=== PATIENT | female | born 1970 | race Caucasian/White ===

== ENCOUNTER 2023-10-16 22:49 | Emergency (ER) | payer BC, SELFPAY ==
[2023-10-16 22:54] VITALS: BP 178/92; PULSE 61; RESP 18; TEMP 36.4; O2SAT 100; BMI 21.9
--- NOTE | 2023-10-16 23:27 | CT_ITS ---
The [place] [id number] Patient Name: PARISA DEAN MRN: [id number] date: 1970 Sex: F Assigned Patient Location: ER Current Patient Location: ER Accession/Order Number: [id number] Exam Date: 10/16/2023 23:59 Report Date: 10/17/2023 01:03 At the request of: ALVINA KIRKPATRICK Procedure: CT abdomen pelvis w con EXAM: CT abdomen pelvis w con HISTORY: diffuse abdominal pain COMPARISON: None. TECHNIQUE: CT of abdomen and pelvis with intravenous contrast. Dose reduction techniques were achieved by using automated exposure control and/or adjustment of mA and/or kV according to patient size and/or use of iterative reconstruction technique. FINDINGS: TUBES AND IMPLANTS: None. LOWER CHEST: Unremarkable ABDOMEN and PELVIS ABDOMINAL WALL AND SOFT TISSUES: Unremarkable. BONES: No suspicious lesions. Mild degenerative changes of the spine. ARTERIES: Mild aortoiliac atherosclerosis without aneurysm VEINS: Unremarkable. LYMPH NODES: Unremarkable. PERITONEUM/ RETROPERITONEUM: No abscess or free air BOWEL: There are mild to moderate sigmoid diverticula with surrounding fat stranding. No obstruction APPENDIX: Unremarkable LIVER: No focal lesions GALLBLADDER: Unremarkable. BILE DUCTS: Not dilated SPLEEN: Calcified granulomata PANCREAS: Unremarkable. ADRENALS: Unremarkable. KIDNEYS/ URETERS: No stones or hydronephrosis. REPRODUCTIVE ORGANS: The uterus is surgically absent. URINARY BLADDER: Diffuse wall thickening CT/CT abdomen pelvis w con IMPRESSION: 1. Findings concerning for acute sigmoid diverticulitis. No abscess or evidence of perforation. 2. Diffuse wall thickening of the bladder, correlate for cystitis. Electronically authenticated by: KAYLEIGH NEVILLE Date: 10/17/2023 01:03
[2023-10-16 23:31] LABS: Basophils Absolute Auto 0.1 10^3/uL (0.0-0.1); Eosinophils Absolute Auto 0.2 10^3/uL (0.0-0.7); Eosinophils Percent Auto 3.1 % (0.9-7.0); Hematocrit 41.3 % (36.0-48.0); Hemoglobin 14.1 g/dL (12.0-16.0); Immature Granulocytes Abs Auto 0.01 10^3/uL (0.00-0.03); Immature Granulocytes Pct Auto 0.2 % (0.0-0.5); Lymphocytes Absolute Auto 2.1 10^3/uL (1.2-3.8); Lymphocytes Percent Auto 34.3 % (20.5-60.0); Mean Corpuscular HGB Conc 34.1 g/dL (29.9-35.2); Mean Corpuscular Hemoglobin 32.7 pg (26.7-34.0); Mean Corpuscular Volume 95.8 fL (81.0-99.0); Mean Platelet Volume 9.6 fL (9.5-13.5); Monocytes Absolute Auto 0.5 10^3/uL (0.3-0.8); Monocytes Percent Auto 7.9 % (1.7-12.0); Neutrophils Absolute Auto 3.3 10^3/uL (1.4-6.5); Neutrophils Percent Auto 53.5 % (43.0-75.0); Platelet Count 250 10^3/uL (150-450); Red Blood Count 4.31 10^6/uL (4.20-5.40); Red Cell Distribution Width 12.3 % (11.0-15.0); White Blood Count 6.1 10^3/uL (4.0-11.0)
[2023-10-16 23:36] LABS: Bilirubin Urine NEGATIVE (NEGATIVE); Blood Urine NEGATIVE (NEGATIVE); Clarity Urine CLEAR (CLEAR); Color Urine LT. YELLOW (YELLOW); Glucose Urine UA NEGATIVE (NEGATIVE); Ketones Urine NEGATIVE (NEGATIVE); Leukocyte Esterase Urine NEGATIVE (NEGATIVE); Nitrite Urine NEGATIVE (NEGATIVE); Protein Urine NEGATIVE (NEG/TRACE); Specific Gravity Urine <=1.005 (1.005-1.025); Urobilinogen Urine 0.2 EU/dL (0.2-1.0)
[2023-10-16 23:39] LABS: Urine Microscopic Indicated NO
[2023-10-16 23:50] LABS: Alanine Aminotransferase 35 U/L (14-59); Albumin Globulin Ratio 0.9; Albumin Level 3.6 g/dL (3.4-5.0); Alkaline Phosphatase 79 U/L (46-116); Anion Gap 11.8; Aspartate Amino Transferase 38 U/L (15-37); BUN Creatinine Ratio 13.4; Bilirubin Total 0.5 mg/dL (0.2-1.0); Calcium 9.8 mg/dL (8.5-10.1); Carbon Dioxide 27.5 mmol/L (21.0-32.0); Chloride 104 mmol/L (98-107); Estimated GFR (African America >60 (>=60); Estimated GFR (Non-African Ame >60 (>=60); Glucose 115 mg/dL (74-106); Potassium 3.3 mmol/L (3.5-5.1); Sodium 140 mmol/L (136-145); Total Protein 7.6 g/dL (6.4-8.2)
[2023-10-16] MEDS: 0.9 % SODIUM CHLORIDE 1,000 ML 999 ML IV (23:58)
--- NOTE | 2023-10-16 23:59 | ED.ABDPAIN1 ---
HPI - Abdominal Pain General Chief Complaint: Abdominal Pain Stated Complaint: ABD PAIN Time Seen by Provider: 10/16/23 22:53 Source: patient Mode of arrival: walk-in Limitations: no limitations History of Present Illness HPI narrative: Patient developed diffuse abdominal pain 2 days ago and pain has steadily worsened since then. She denied any injury to the torso. No urinary symptoms. Pain better after BM but worse during urination. Pain is non-radiating and there is no associated flank pain. No fever. She had nausea but no vomiting. No skin rash. Nothing taken for pain at home. Related Data Previous Rx's Medication Instructions Recorded ciprofloxacin HCl 500 mg tablet 500 mg PO BID #14 tabs 10/17/23 (Cipro) hydrocodone 5 mg-acetaminophen 325 1 tab PO Q6H PRN pain 4 days #14 10/17/23 mg tablet tabs metronidazole 500 mg tablet 500 mg PO TID #21 tabs 10/17/23 ondansetron 4 mg disintegrating 4 mg PO Q6H PRN nausea and 10/17/23 tablet vomiting #14 tabs Allergies Allergy/AdvReac Type Severity Reaction Status Date / Time cefazolin [From [facility]] Allergy Mild Verified 10/16/23 22:58 PFSH PFSH Social History Smoking status: Current every day smoker Exam Narrative Exam Narrative: Nurses notes and vital signs reviewed and patient is not hypoxic. afebrile General: Well-appearing and in no apparent distress despite telling me that her abdominal pain is 12/10. Skin: Warm, dry, no pallor noted. No rash. Eye: Pupils are equal, round and EOMI. No scleral icterus. Cardiovascular: Regular Rate and Rhythm without murmur, gallop or rub. Respiratory: No accessory muscle use or respiratory distress. Lungs are clear to auscultation, no wheezing, rales or rhonchi Back: No CVA tenderness Musculoskeletal: normal ROM, no lower extremity edema/swelling GI: Abdomen is soft, non-distended. Normal bowel sounds. No masses appreciated. Diffuse tenderness to palpation. No rebound, guarding, or rigidity noted. Neurological: A&O x4. No cranial nerve dysfunction observed. No truncal ataxia. Moves all extremities. Sensation intact. Psychiatric: Cooperative and interactive. Normal mood and affect. Constitutional Vital Signs, click to edit/add: Last Vital Signs Temp 97.6 F 10/16/23 22:54 Pulse 50 L 10/17/23 01:17 Resp 18 10/17/23 01:17 BP 129/65 10/17/23 01:17 Pulse Ox 99 10/17/23 01:17 O2 Del Method Room Air 10/17/23 01:17 Course Vital Signs Vital signs: Vital Signs Temperature 97.6 F 10/16/23 22:54 Pulse Rate 61 10/16/23 22:54 Respiratory Rate 18 10/16/23 22:54 Blood Pressure 178/92 H 10/16/23 22:54 Pulse Oximetry 100 10/16/23 22:54 Oxygen Delivery Method Room Air 10/16/23 22:54 Temperature 97.6 F 10/16/23 22:54 Pulse Rate 50 L 10/17/23 01:17 Respiratory Rate 18 10/17/23 01:17 Blood Pressure 129/65 10/17/23 01:17 Pulse Oximetry 99 10/17/23 01:17 Oxygen Delivery Method Room Air 10/17/23 01:17 MDM - Abdominal Pain MDM Narrative Medical decision making narrative: referral IV established and blood drawn and sent for testing. I also asked the urine be sent for testing. The patient was ordered to undergo CT scanning of the abdomen and pelvis with both oral and IV contrast. She was given IV Zofran, IV Toradol and normal saline IV fluid bolus. Blood and urine tests unremarkable for acute worrisome pathology. CT scan revealed sigmoid diverticulitis without perforation. UA negative so bladder changes on CT unlikely to reflect cystitis. Patient informed of results and prescribed cipro and flagyl to treat the diverticulitis and prescribed zofran and norco for nausea and pain. PCP follow up recommended - ED return if she worsens. Lab Data Attestation: I reviewed the patient's lab results. Labs: Lab Results 10/16/23 10/16/23 Range/Units 23:00 23:25 WBC 6.1 (4.0-11.0) 10^3/uL RBC 4.31 (4.20-5.40) 10^6/uL Hgb 14.1 (12.0-16.0) g/dL Hct 41.3 (36.0-48.0) % MCV 95.8 (81.0-99.0) fL MCH 32.7 (26.7-34.0) pg MCHC 34.1 (29.9-35.2) g/dL RDW 12.3 (11.0-15.0) % Plt Count 250 (150-450) 10^3/uL MPV 9.6 (9.5-13.5) fL Neut % (Auto) 53.5 (43.0-75.0) % Lymph % (Auto) 34.3 (20.5-60.0) % [place] % (Auto) 7.9 (1.7-12.0) % Eos % (Auto) 3.1 (0.9-7.0) % Baso % (Auto) 1.0 (0.2-2.0) % Neut # (Auto) 3.3 (1.4-6.5) 10^3/uL Lymph # (Auto) 2.1 (1.2-3.8) 10^3/uL [place] # (Auto) 0.5 (0.3-0.8) 10^3/uL Eos # (Auto) 0.2 (0.0-0.7) 10^3/uL Baso # (Auto) 0.1 (0.0-0.1) 10^3/uL Abs Immat Gran (auto) 0.01 (0.00-0.03) 10^3/uL Imm/Tot Granulo (auto) 0.2 (0.0-0.5) % Sodium 140 (136-145) mmol/L Potassium 3.3 L (3.5-5.1) mmol/L Chloride 104 (98-107) mmol/L Carbon Dioxide 27.5 (21.0-32.0) mmol/L Anion Gap 11.8 BUN 11.0 (7.0-18.0) mg/dL Creatinine 0.82 (0.55-1.02) mg/dL Est GFR ( Amer) >60 (>=60) Est GFR (Non-Af Amer) >60 (>=60) BUN/Creatinine Ratio 13.4 Glucose 115 H (74-106) mg/dL Calcium 9.8 (8.5-10.1) mg/dL Total Bilirubin 0.5 (0.2-1.0) mg/dL AST 38 H (15-37) U/L ALT 35 (14-59) U/L Alkaline Phosphatase 79 (46-116) U/L Total Protein 7.6 (6.4-8.2) g/dL Albumin 3.6 (3.4-5.0) g/dL Globulin 4.0 g/dL Albumin/Globulin Ratio 0.9 Lipase 34.0 (16.0-77.0) U/L Urine Color Lt. yellow (YELLOW) Urine Clarity Clear (CLEAR) Urine pH 7.0 (5.0-9.0) Ur Specific [place] <=1.005 A (1.005-1.025) Urine Protein Negative (NEG/TRACE) mg/dL Urine Glucose (UA) Negative (NEGATIVE) mg/dL Urine Ketones Negative (NEGATIVE) mg/dL Urine Occult Blood Negative (NEGATIVE) Urine Nitrite Negative (NEGATIVE) Urine Bilirubin Negative (NEGATIVE) Urine Urobilinogen 0.2 (0.2-1.0) EU/dL Ur Leukocyte Esterase Negative (NEGATIVE) Imaging Data CT scan - abdomen: Radiologist's impression: Patient Name: PARISA DEAN MRN: [id number] date: 1970 Sex: F Assigned Patient Location: Current Patient Location: Accession/Order Number: [id number] Exam Date: 10/16/2023 23:59 Report Date: 10/17/2023 01:03 At the request of: ALVINA KIRKPATRICK Procedure: CT abdomen pelvis w con EXAM: CT abdomen pelvis w con HISTORY: diffuse abdominal pain COMPARISON: None. TECHNIQUE: CT of abdomen and pelvis with intravenous contrast. Dose reduction techniques were achieved by using automated exposure control and/or adjustment of mA and/or kV according to patient size and/or use of iterative reconstruction technique. FINDINGS: TUBES AND IMPLANTS: None. LOWER CHEST: Unremarkable ABDOMEN and PELVIS ABDOMINAL WALL AND SOFT TISSUES: Unremarkable. BONES: No suspicious lesions. Mild degenerative changes of the spine. ARTERIES: Mild aortoiliac atherosclerosis without aneurysm VEINS: Unremarkable. LYMPH NODES: Unremarkable. PERITONEUM/ RETROPERITONEUM: No abscess or free air BOWEL: There are mild to moderate sigmoid diverticula with surrounding fat stranding. No obstruction APPENDIX: Unremarkable LIVER: No focal lesions GALLBLADDER: Unremarkable. BILE DUCTS: Not dilated SPLEEN: Calcified granulomata PANCREAS: Unremarkable. ADRENALS: Unremarkable. KIDNEYS/ URETERS: No stones or hydronephrosis. REPRODUCTIVE ORGANS: The uterus is surgically absent. URINARY BLADDER: Diffuse wall thickening IMPRESSION: 1. Findings concerning for acute sigmoid diverticulitis. No abscess or evidence of perforation. 2. Diffuse wall thickening of the bladder, correlate for cystitis. Electronically authenticated by: KAYLEIGH NEVILLE Date: 10/17/2023 01:03 Discharge Plan Discharge Chief Complaint: Abdominal Pain Clinical Impression: Diverticulitis Patient Disposition: Home, Self-Care Time of Disposition Decision: 01:15 Prescriptions / Home Meds: New ondansetron 4 mg tablet,disintegrating 4 mg PO Q6H PRN (Reason: nausea and vomiting) Qty: 14 0RF ciprofloxacin HCl [Cipro] 500 mg tablet 500 mg PO BID Qty: 14 0RF metronidazole 500 mg tablet 500 mg PO TID Qty: 21 0RF hydrocodone-acetaminophen 5-325 mg tablet 1 tab PO Q6H PRN (Reason: pain) 4 Days Qty: 14 0RF Instructions: Diverticulitis (ED), Diverticulitis Diet (ED) Stand Alone Forms: Portal Instructions Referrals: Physician,Non-Staff, MD [Primary Care Provider] - 1 week
[2023-10-17] MEDS: KETOROLAC TROMETHAMINE 30 MG/ML VIAL IVP (00:04)
[2023-10-17] MEDS: ONDANSETRON PF 4 MG/2 ML VIAL IV (00:05)
[2023-10-17 01:17] VITALS: BP 129/65; PULSE 50; RESP 18; O2SAT 99
== END 2023-10-17 01:45 | disposition home or self-care (01) ==
PROVIDERS: Emergency Provider Emergency Medicine
DX: K57.32 Diverticulitis of large intestine without perforation or abscess without bleeding (principal); F17.210 Nicotine dependence, cigarettes, uncomplicated
CPT/HCPCS: 36415; 74177; 80053; 81003; 83690; 85025; 96374; 96375; 99284; Q9967

== ENCOUNTER 2024-12-09 11:46 | Emergency (ER) | payer BC, SELFPAY ==
[2024-12-09 11:52] VITALS: BP 163/86; PULSE 91; TEMP 36.7; O2SAT 97; BMI 21.9
--- NOTE | 2024-12-09 12:13 | CT_ITS ---
The [address] [id number] Patient Name: PARISA DEAN MRN: [id number] date: 1970 Sex: F Assigned Patient Location: ER Current Patient Location: .[facility] Accession/Order Number: [id number] Exam Date: 12/09/2024 12:20 Report Date: 12/09/2024 13:11 At the request of: ROSI HUDDLESTON Procedure: CT abdomen pelvis wo con EXAM: CT scan of the abdomen and pelvis without contrast. Dose reduction technique used: Automated exposure control and/or adjustment of the mA and/or kV according to patient size and/or use of iterative reconstruction technique. REASON FOR EXAM: RLQ pain COMPARISON: CT scan dated 10/17/23 FINDINGS: Bladder wall thickening. Suggestion of mild bilateral urothelial thickening in the renal pelvises. Colonic diverticulosis. Bilateral adrenal adenomas are not significantly changed. Grade 1 anterolisthesis at of L4 on L5. L5 superior endplate chronic compression fracture with mild height loss. L4-5 spinal canal stenosis is likely moderate. No renal, ureteral or bladder calculi. No hydronephrosis. Normal appendix. No free fluid in the abdomen or pelvis. No free intraperitoneal air. No dilated or thickened loops of small bowel or colon. Liver, pancreas, spleen, bilateral kidneys, and bilateral adrenal glands are otherwise unremarkable within the limitations of noncontrast CT. No lymphadenopathy in the abdomen or pelvis. Remainder unremarkable. CT/CT abdomen pelvis wo con IMPRESSION: Possible changes of cystitis and ascending urinary tract infection, correlate clinically. Electronically authenticated by: CASSIA MCCOY Date: 12/09/2024 13:11
[2024-12-09 12:23] LABS: Bilirubin Urine NEGATIVE (NEGATIVE); Blood Urine NEGATIVE (NEGATIVE); Clarity Urine CLEAR (CLEAR); Color Urine LT. YELLOW (YELLOW); Glucose Urine UA NEGATIVE (NEGATIVE); Ketones Urine NEGATIVE (NEGATIVE); Leukocyte Esterase Urine NEGATIVE (NEGATIVE); Nitrite Urine NEGATIVE (NEGATIVE); Protein Urine NEGATIVE (NEG/TRACE); Specific Gravity Urine <=1.005 (1.005-1.025); Urobilinogen Urine 0.2 EU/dL (0.2-1.0)
[2024-12-09] MEDS: KETOROLAC TROMETHAMINE 30 MG/ML VIAL 15 MG IVP (12:26)
[2024-12-09 12:28] LABS: Basophils Absolute Auto 0.1 10^3/uL (0.0-0.1); Basophils Percent Auto 1.7 % (0.2-2.0); Eosinophils Absolute Auto 0.2 10^3/uL (0.0-0.7); Eosinophils Percent Auto 2.7 % (0.9-7.0); Hematocrit 40.4 % (36.0-48.0); Immature Granulocytes Abs Auto 0.11 10^3/uL (0.00-0.03); Immature Granulocytes Pct Auto 1.8 % (0.0-0.5); Lymphocytes Absolute Auto 2.5 10^3/uL (1.2-3.8); Mean Corpuscular HGB Conc 34.7 g/dL (29.9-35.2); Mean Corpuscular Hemoglobin 32.2 pg (26.7-34.0); Mean Corpuscular Volume 92.9 fL (81.0-99.0); Mean Platelet Volume 9.1 fL (9.5-13.5); Monocytes Absolute Auto 0.3 10^3/uL (0.3-0.8); Monocytes Percent Auto 5.6 % (1.7-12.0); Neutrophils Absolute Auto 2.9 10^3/uL (1.4-6.5); Neutrophils Percent Auto 47.2 % (43.0-75.0); Platelet Count 321 10^3/uL (150-450); Red Blood Count 4.35 10^6/uL (4.20-5.40); Red Cell Distribution Width 12.1 % (11.0-15.0)
[2024-12-09 12:34] LABS: Urine Microscopic Indicated NO
[2024-12-09 12:39] LABS: Alanine Aminotransferase 30 U/L (14-59); Albumin Globulin Ratio 1.3; Albumin Level 4.1 g/dL (3.4-5.0); Alkaline Phosphatase 62 U/L (46-116); Anion Gap 11.4; Aspartate Amino Transferase 23 U/L (15-37); BUN Creatinine Ratio 8.3; Bilirubin Total 0.3 mg/dL (0.2-1.0); Calcium 9.2 mg/dL (8.5-10.1); Carbon Dioxide 28.6 mmol/L (21.0-32.0); Chloride 103 mmol/L (98-107); Estimated GFR (African America 56 (>=60 mL/min/1.73m^2); Estimated GFR (Non-African Ame 46 (>=60 mL/min/1.73m^2); Globulin 3.1 g/dL; Glucose 102 mg/dL (74-106); Sodium 139 mmol/L (136-145); Total Protein 7.2 g/dL (6.4-8.2)
[2024-12-09 12:41] LABS: Lactate/Lactic Acid 0.6 mmol/L (0.4-2.0)
[2024-12-09] MEDS: 0.9 % SODIUM CHLORIDE 1,000 ML 500 ML IV (12:51)
--- OUTSIDE RECORDS SUMMARY | 2024-12-09 12:51 | XMS_ITS | CCD ---
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 Comment on above: Performed By: #### U MICRO, ERUR #### [facility] [address] [address] [address] Johanny Christianson CAST SEEN Abnormal NONE SEEN [facility] Comment on above: Performed By: #### U MICRO, ERUR #### [facility] [address] [address] [address] Johanny Christianson Crystals LM Nom (Urine sed) NONE SEEN Normal NONE SEEN [facility] Comment on above: Performed By: #### U MICRO, ERUR #### [facility] [address] [address] [address] Johanny Christianson Epithelial cells LM Ql (Urine sed) RARE Normal NONE SEEN /RARE [facility] Comment on above: Performed By: #### U MICRO, ERUR #### [facility] [address] [address] [address] Johanny Christianson FINE GRANULAR CAST RARE Normal [facility] Comment on above: Performed By: #### U MICRO, ERUR #### [facility] [address] [address] [address] Johanny Christianson MUCOUS NONE SEEN Normal NONE SEEN [facility] Comment on above: Performed By: #### U MICRO, ERUR #### [facility] [address] [place] [address] Dr. Johanny Christianson RBC 0-2 Normal 0-2 [facility] Comment on above: Performed By: #### U MICRO, ERUR #### [facility] [address] [address] [address] Johanny Christianson WBC 0-2 Abnormal NONE SEEN [facility] Comment on above: Performed By: #### U MICRO, ERUR #### [facility] [address] [place] [address] Dr. Johanny Christianson XR FEMUR RTon 02-20-2023 XR FEMUR RT EXAM: XR FEMUR RT HISTORY: Right leg Pain COMPARISON: None available TECHNIQUE: 4 views right femur x-rays FINDINGS: No acute fracture line, dislocation, or focal osseous erosion. No radiopaque foreign body. IMPRESSION: No radiographic evidence for acute osseous injury. Electronically authenticated by: CHASE URBY Date: 2023-02-20 03:01 Normal [facility] XR KNEE RT 4V or >on 023 XR KNEE RT 4V or > EXAM: XR KNEE RT 4V or > HISTORY: Pain COMPARISON: None. TECHNIQUE: 4 views of the right knee were obtained. FINDINGS: No acute fracture or dislocation is seen. The joint spaces are preserved. There is no significant right knee joint effusion. IMPRESSION: 1. No acute fracture or dislocation of the right knee is seen. If there is concern for internal derangement, a nonemergent outpatient MRI is recommended. Electronically authenticated by: Cabrera WOLFE Date: 2023-02-20 03:05 Normal [facility] Alanine aminotransferase [En zymatic activity/volume] in Serum or PlasmaOrdered By: Isi Bullimore on 02-15-2023 ALT [Catalytic activity/Vol] 8 U/L 7-52 [facility] Albumin [Mass/volume] in Ser um or Plasma by Bromocresol green (BCG) dye binding methoOrdered By: Isi Bullimore on 02-15-2023 Albumin BCG dye [Mass/Vol] 4.1 g/dL 3.5-5.7 [facility] Alkaline phosphatase [Enzyma tic activity/volume] in Serum or PlasmaOrdered By: Isi Bullimore on 02-15-2023 ALP [Catalytic activity/Vol] 56 U/L 34-104 [facility] Aspartate aminotransferase [ Enzymatic activity/volume] in Serum or PlasmaOrdered By: Isi Bullimore on 02-15-2023 AST [Catalytic activity/Vol] 12 U/L 13-39 [facility] Basic Metabolic Panelon 04-0 Anion gap [Moles/Vol] 8.4 mmol/L Normal 6.0-15.0 [facility] Comment on above: Performed By: #### C BC, BMP, HEPATIC, LIPASE #### [facility] [address] [place] [address] [place] Calcium [Mass/Vol] 9.0 mg/dL Normal 8.6-10.3 [facility] Comment on above: Performed By: #### C BC, BMP, HEPATIC, LIPASE #### [facility] [address] [id number] [place] Chloride [Moles/Vol] 107 mmol/L Normal 98-107 [facility] Comment on above: Performed By: #### C BC, BMP, HEPATIC, LIPASE #### [facility] [address] [id number] [place] CO2 [Moles/Vol] 26.8 mmol/L Normal 21.0-31.0 [facility] Comment on above: Performed By: #### C BC, BMP, HEPATIC, LIPASE #### [facility] [address] [place] [address] [place] Creatinine [Mass/Vol] 0.72 mg/dL Normal 0.60-1.20 [facility] Comment on above: Performed By: #### C BC, BMP, HEPATIC, LIPASE #### [facility] [address] [place] [address] [place] Creatinine Clr Calc Pharmacy 88.88 [facility] Comment on above: Performed By: #### C BC, BMP, HEPATIC, LIPASE #### [facility] [address] [place] [address] [place] GFR/1.73 sq M.predicted MDRD (S/P/Bld) [Vol rate/Area] mL/min/{1.73_m2} [facility] Comment on above: Performed By: #### C BC, BMP, HEPATIC, LIPASE #### [facility] [address] Glucose [Mass/Vol] 98 mg/dL Normal 70-100 [facility] Comment on above: Result Comment: [facility] Glucose Reference Range is dependent on time and content of last meal. Glucose of more than 200 mg/dL in a nonstressed, ambulatory subject supports the diagnosis of Diabetes Mellitus. ADA recommended reference range Performed By: #### C BC, BMP, HEPATIC, LIPASE #### [facility] [address] Potassium [Moles/Vol] 3.2 mmol/L Low 3.5-5.1 [facility] Comment on above: Performed By: #### C BC, BMP, HEPATIC, LIPASE #### [facility] [address] [place] [address] [place] Sodium [Moles/Vol] 139 mmol/L Normal 136-145 [facility] Comment on above: Performed By: #### C BC, BMP, HEPATIC, LIPASE #### [facility] [address] Urea nitrogen [Mass/Vol] 7 mg/dL Normal 7-25 [facility] Comment on above: Performed By: #### C BC, BMP, HEPATIC, LIPASE #### [place] [id number] [facility] Basophils Auto (Bld) [#/Vol] Ordered By: Isi Xiao on 02-15-2023 Basophils (Bld) [#/Vol] 0.1 10*3/uL 0.0-0.2 [facility] Basophils/100 WBC Auto (Bld) Ordered By: Isi Xiao on 02-15-2023 Basophils/100 WBC (Bld) 0.9 % . [facility] Bilirubin Test strip Ql (U)O rdered By: Isi Xiao on 02-15-2023 Bilirubin Ql (U) Negative Negative [facility] Bilirubin.direct [Mass/volum e] in Serum or PlasmaOrdered By: Isi Xiao on 02-15-2023 Bilirubin.direct [Mass/Vol] 0.00 mg/dL 0.03-0.18 [facility] Comment on above: If the DBIL is less than 0.1, IBIL is not able to becalculated. Bilirubin.total [Mass/volume ] in Serum or PlasmaOrdered By: Isi Xiao on 02-15-2023 Bilirubin [Mass/Vol] 0.5 mg/dL 0.3-1.[address] [facility] [address] abdomen pelvis w conon CT abdomen pelvis w con [facility] [address] [place] [id number] CT Scan Report Signed Patient: Emily Beatty MR#: [id number] : 1970 Acct:[id number] Age/Sex: 52 / F ADM Date: 02/15/23 Loc: ER Room: Type: [facility] ER Attending Dr: Copies to: EAGLE Bailey Ordering Provider: EAGLE Bailey Date of Service: 02/15/23 CT/CT abdomen pelvis w con: LLQ abd pain this morning CT abdomen and pelvis withcontrast TECHNIQUE: Axial imaging with 2-D reconstruction.90 cc of Isovue-300. The CT exam was performed using one or more the following dose reduction techniques: Automated exposure control, adjustment of the MA and/or Kv according to patient size, or use of the iterative reconstruction technique. COMPARISON:04/28/2020 History: Left lower quadrant pain this morning. Prior hysterectomy. History of left renal mass. LIMITATIONS: None LOWER THORAX Unremarkable LIVER: Unremarkable GALLBLADDER: No gallbladder abnormality identified. BILE DUCTS: No dilatation SPLEEN: Unremarkable PANCREAS: Unremarkable ADRENAL GLANDS: Unremarkable KIDNEYS:Unremarkable AORTA: No abdominal aortic aneurysm identified. RETROPERITONEUM: No significant retroperitoneal abnormalities identified. MESENTERY:Unremarkable SMALL BOWEL: The small bowel loops are nondistended. APPENDIX: The appendix is normal. COLON: Distal colonic diverticulosis. Wall thickening and inflammation of the distal descending colon near diverticuli consistent with acute diverticulitis. No abscess. No extraluminal air. URINARY BLADDER: Urinary bladder is unremarkable. REPRODUCTIVE SYSTEM: The uterus is absent. PNEUMOPERITONEUM: None PERITONEAL FLUID:None BONY STRUCTURES: Degenerative change. ABDOMINAL WALL: Unremarkable CT/CT abdomen pelvis w con IMPRESSION: Uncomplicated distal descending colon diverticulitis. Impression dictated by: Wilman Suggs M.D.02/15/2023 2:41 PM Dictation Location: [place] [address] Transcribed By: [facility] 02/15/23 1441 Dictated By: Wilman Suggs DO 02/15/23 1438 Signed By: 02/15/23 1441 Normal [facility] Calcium [Mass/volume] in Ser um or PlasmaOrdered By: Isi Xiao on 02-15-2023 Calcium [Mass/Vol] 9.0 mg/dL 8.6-10.3 [facility] Carbon dioxide, total [Moles /volume] in Serum or PlasmaOrdered By: Isi Xiao on 02-15-2023 CO2 [Moles/Vol] 26.8 mmol/L 21.0-31.0 [facility] Chloride [Moles/volume] in S lc or PlasmaOrdered By: Isi Xiao on 02-15-2023 Chloride [Moles/Vol] 107 mmol/L 98-107 [facility] Color Auto (U)Ordered By: Julieta Xiao on 02-15-2023 Color (U) Yellow Yellow [facility] Complete Blood Count Auto Di ffon 02-15-2023 Basophils (Bld) [#/Vol] 0.1 10*3/uL Normal 0.0-0.2 [facility] Comment on above: Result Comment: PERF ORMED BY: [place] [address] PATHOLOGIST SENIOR PROCESS ANALYST FRANCI DON M.D. Performed By: #### C BC, BMP, HEPATIC, LIPASE #### [address] Basophils/100 WBC (Bld) 0.9 % Normal . [facility] Comment on above: Performed By: #### C BC, BMP, HEPATIC, LIPASE #### [address] Eosinophils (Bld) [#/Vol] 0.1 10*3/uL Normal 0.0-0.45 [facility] Comment on above: Performed By: #### C BC, BMP, HEPATIC, LIPASE #### [address] Eosinophils/100 WBC (Bld) 1.4 % Normal . [facility] Comment on above: Performed By: #### C BC, BMP, HEPATIC, LIPASE #### [address] Erythrocyte distribution width (RBC) [Ratio] 13.4 % Normal 11.9-15.3 [facility] Comment on above: Performed By: #### C BC, BMP, HEPATIC, LIPASE #### [address] Hematocrit (Bld) [Volume fraction] 39.1 % Normal 34.0-46.4 [facility] Comment on above: Performed By: #### C BC, BMP, HEPATIC, LIPASE #### [address] Hemoglobin (Bld) [Mass/Vol] 13.3 g/dL Normal 11.8-15.4 [facility] Comment on above: Performed By: #### C BC, BMP, HEPATIC, LIPASE #### [place] [address] [place] Lymphocytes (Bld) [#/Vol] 2.3 10*3/uL Normal 1.00-4.8 [facility] Comment on above: Performed By: #### C BC, BMP, HEPATIC, LIPASE #### [address] Lymphocytes/100 WBC (Bld) 30.5 % Normal . [facility] Comment on above: Performed By: #### C BC, BMP, HEPATIC, LIPASE #### [address] MCH (RBC) [Entitic mass] 31.3 pg Normal 24.7-34.3 [facility] Comment on above: Performed By: #### C BC, BMP, HEPATIC, LIPASE #### [address] MCV (RBC) [Entitic vol] 91.7 fL Normal 80-100 [facility] Comment on above: Performed By: #### C BC, BMP, HEPATIC, LIPASE #### [address] Mean Corpuscular HGB Conc 34.1 g/dL Normal 32.0-35.0 [facility] Comment on above: Performed By: #### C BC, BMP, HEPATIC, LIPASE #### [address] Monocytes (Bld) [#/Vol] 0.5 10*3/uL Normal 0.0-0.8 [facility] Comment on above: Performed By: #### C BC, BMP, HEPATIC, LIPASE #### [address] Monocytes/100 WBC (Bld) 16.25 % Normal 0.00-20.00 [facility] Comment on above: Performed By: #### C BC, BMP, HEPATIC, LIPASE #### [address] Monocytes/100 WBC (Bld) 6.6 % Normal . [facility] Comment on above: Performed By: #### C BC, BMP, HEPATIC, LIPASE #### [address] [address] [place] Neutrophils (Bld) [#/Vol] 4.6 10*3/uL Normal 1.8-7.7 [facility] Comment on above: Performed By: #### C BC, BMP, HEPATIC, LIPASE #### [address] Neutrophils/100 WBC (Bld) 60.6 % Normal . [facility] Comment on above: Performed By: #### C BC, BMP, HEPATIC, LIPASE #### [address] NRBC% 0.1 /100{WBC} Normal 0-0.5 [facility] Comment on above: Performed By: #### C BC, BMP, HEPATIC, LIPASE #### [address] Platelet mean volume (Bld) [Entitic vol] 7.4 fL Normal 6.3-10.7 [facility] Comment on above: Performed By: #### C BC, BMP, HEPATIC, LIPASE #### [address] Platelets (Bld) [#/Vol] 239 10*3/uL Normal 150-450 [facility] Comment on above: Performed By: #### C BC, BMP, HEPATIC, LIPASE #### [address] RBC (Bld) [#/Vol] 4.26 10*6/uL Normal 3.60-5.00 [facility] Comment on above: Performed By: #### C BC, BMP, HEPATIC, LIPASE #### [place] [address] [place] WBC (Bld) [#/Vol] 7.5 10*3/uL Normal 3.8-11.6 [facility] Comment on above: Performed By: #### C BC, BMP, HEPATIC, LIPASE #### [address] Creatinine [Mass/volume] in Serum or PlasmaOrdered By: Isi Xiao on 02-15-2023 Creatinine [Mass/Vol] 0.72 mg/dL 0.60-1.20 [facility] Eosinophils Auto (Bld) [#/Vo l]Ordered By: [facility] on 02-15-2023 Eosinophils (Bld) [#/Vol] 0.1 10*3/uL 0.0-0.45 [facility] Eosinophils/100 WBC Auto (Bl d)Ordered By: [facility] on 02-15-2023 Eosinophils/100 WBC (Bld) 1.4 % . [facility] Erythrocyte distribution wid th Auto (RBC) [Ratio]Ordered By: [facility] on 02-15-2023 Erythrocyte distribution width (RBC) [Ratio] 13.4 % 11.9-15.3 [facility] Globulin Calc (S) [Mass/Vol] Ordered By: [facility] on 02-15-2023 Globulin (S) [Mass/Vol] 2.4 g/dL [facility] Glucose [Mass/volume] in Ser um or PlasmaOrdered By: [facility] on 02-15-2023 Glucose [Mass/Vol] 98 mg/dL 70-100 [facility] Comment on above: ADA recommended refe rence rangeRandom Glucose Reference Range is dependent on time and content of last meal. Glucose of more than 200 mg/dL in a nonstressed, ambulatory subject supports the diagnosis of Diabetes Mellitus. Hematocrit Auto (Bld) [Volum e fraction]Ordered By: [facility] 02-15-2023 Hematocrit (Bld) [Volume fraction] 39.1 % 34.0-46.4 [facility] Hemoglobin [Mass/volume] in BloodOrdered By: [facility] on 02-15-2023 Hemoglobin (Bld) [Mass/Vol] 13.3 g/dL 11.8-15.4 [facility] Hepatic Panelon 02-15-2023 Albumin [Mass/Vol] 4.1 g/dL Normal 3.5-5.7 [facility] Comment on above: Performed By: #### C BC, BMP, HEPATIC, LIPASE #### [facility] [address] Albumin/Globulin [Mass ratio] 1.7 {ratio} Normal [facility] Comment on above: Performed By: #### C BC, BMP, HEPATIC, LIPASE #### [facility] [address] ALP [Catalytic activity/Vol] 56 U/L Normal 34-104 [facility] Comment on above: Performed By: #### C BC, BMP, HEPATIC, LIPASE #### [facility] [address] ALT [Catalytic activity/Vol] 8 U/L Normal 7-52 [facility] Comment on above: Performed By: #### C BC, BMP, HEPATIC, LIPASE #### [address] AST [Catalytic activity/Vol] 12 U/L Low 13-39 [facility] Comment on above: Performed By: #### C BC, BMP, HEPATIC, LIPASE #### [address] Bilirubin [Mass/Vol] 0.5 mg/dL Normal 0.3-1.0 [facility] Comment on above: Performed By: #### C BC, BMP, HEPATIC, LIPASE #### [address] Bilirubin,Indirect 0.5 mg/dL Normal [facility] Comment on above: Performed By: #### C BC, BMP, HEPATIC, LIPASE #### [facility] [address] [place] [address] Bilirubin.indirect [Mass/Vol] 0.00 mg/dL Low 0.03-0.18 [facility] Comment on above: Result Comment: If t he DBIL is less than 0.1, IBIL is not able to be calculated. Performed By: #### C BC, BMP, HEPATIC, LIPASE #### [address] Globulin (S) [Mass/Vol] 2.4 g/dL Normal [facility] Comment on above: Performed By: #### C BC, BMP, HEPATIC, LIPASE #### [address] [place] [address] [place] Protein [Mass/Vol] 6.5 g/dL Normal 6.4-8.9 [facility] Comment on above: Performed By: #### C BC, BMP, HEPATIC, LIPASE #### [address] Ketones Auto test strip (U) [Mass/Vol]Ordered By: Isi Bullimore on 02-15-2023 Ketones (U) [Mass/Vol] Negative Negative [facility] Leukocytes [#/volume] correc katelin for nucleated erythrocytes in Blood by Automated counOrdered By: Isi Bullimore on 02-15-2023 WBC corrected for nucl RBC Auto (Bld) [#/Vol] 7.5 10*3/uL 3.8-11.6 [facility] Lipaseon 02-15-2023 Lipase [Catalytic activity/Vol] 23.0 U/L Normal 11.0-82.0 [facility] Comment on above: Result Comment: PERF ORMED BY: [place] [address] PATHOLOGIST SENIOR PROCESS ANALYST FRANCI DON M.D. Performed By: #### C BC, BMP, HEPATIC, LIPASE #### [address] Lipase [Enzymatic activity/v olume] in Serum or PlasmaOrdered By: Isi Bullimore on 02-15-2023 Lipase [Catalytic activity/Vol] 23.0 U/L 11.0-82.0 [facility] Lymphocytes Auto (Bld) [#/Vo l]Ordered By: Isi Bullimore on 02-15-2023 Lymphocytes (Bld) [#/Vol] 2.3 10*3/uL 1.00-4.8 [facility] Lymphocytes/100 WBC Auto (Bl d)Ordered By: Isi Bullimore on 02-15-2023 Lymphocytes/100 WBC (Bld) 30.5 % . [facility] MCH Auto (RBC) [Entitic mass ]Ordered By: Isi Bullimore on 02-15-2023 MCH (RBC) [Entitic mass] 31.3 pg 24.7-34.3 [facility] MCHC Auto (RBC) [Mass/Vol]Or dered By: Isi Dotsonimore on 02-15-2023 MCHC (RBC) [Mass/Vol] 34.1 g/dL 32.0-35.0 [facility] MCV Auto (RBC) [Entitic vol] Ordered By: Isi Dotsonimore on 02-15-2023 MCV (RBC) [Entitic vol] 91.7 fL 80-100 [facility] Monocyte distribution width [Entitic volume] in Blood by AutomatedOrdered By: Isi Dotsonimyessica on 02-15-2023 Monocyte distribution width Auto (Bld) [Entitic vol] 16.25 % 0.00-20.00 [facility] Monocytes Auto (Bld) [#/Vol] Ordered By: Isi Dotsonimore on 02-15-2023 Monocytes (Bld) [#/Vol] 0.5 10*3/uL 0.0-0.8 [facility] Monocytes/100 WBC Auto (Bld) Ordered By: Isi Dotsonimore on 02-15-2023 Monocytes/100 WBC (Bld) 6.6 % . [facility] Neutrophils Auto (Bld) [#/Vo l]Ordered By: Isi Dotsonimore on 02-15-2023 Neutrophils (Bld) [#/Vol] 4.6 10*3/uL 1.8-7.7 [facility] Neutrophils/100 WBC Auto (Bl d)Ordered By: Isi Dotsonimore on 02-15-2023 Neutrophils/100 WBC (Bld) 60.6 % . [facility] Nitrite Test strip Ql (U)Ord ered By: Isi Xiao on 02-15-2023 Nitrite Ql (U) Negative Negative [facility] No Panel InformationOrdered By: Isi Xiao on 02-15-2023 Estimated GFR (CKD-EPI) > 60.0 mL/Min [facility] Pharmacy Creatinine Clearance (Chem 88.88 [facility] Nucleated erythrocytes [Pres ence] in Blood by Automated countOrdered By: Isi Xiao on 02-15-2023 Nucleated RBC Auto Ql (Bld) 0.1 /100{WBC} 0-0.5 [facility] Platelet mean volume Auto (B ld) [Entitic vol]Ordered By: Isi Bullimore on 02-15-2023 Platelet mean volume (Bld) [Entitic vol] 7.4 fL 6.3-10.7 [facility] Platelets Auto (Bld) [#/Vol] Ordered By: Isi Bullimore on 02-15-2023 Platelets (Bld) [#/Vol] 239 10*3/uL 150-450 [facility] Potassium [Moles/volume] in Serum or PlasmaOrdered By: Isi Bullimore on 02-15-2023 Potassium [Moles/Vol] 3.2 mmol/L 3.5-5.1 [facility] Protein Auto test strip (U) [Mass/Vol]Ordered By: Isi Bullimore on 02-15-2023 Protein (U) [Mass/Vol] Negative Negative [facility] Protein [Mass/volume] in Ser um or PlasmaOrdered By: Isi Bullimore on 02-15-2023 Protein [Mass/Vol] 6.5 g/dL 6.4-8.9 [facility] RBC Auto (Bld) [#/Vol]Ordere d By: Isi Bullimore on 02-15-2023 RBC (Bld) [#/Vol] 4.26 10*6/uL 3.60-5.00 [facility] Serum or plasma albumin/glob ulin mass ratioOrdered By: Isi Bullimore on 02-15-2023 Albumin/Globulin [Mass ratio] 1.7 {ratio} [facility] Serum or plasma anion gap de terminationOrdered By: Isi Bullimore on 02-15-2023 Anion gap [Moles/Vol] 8.4 mmol/L 6.0-15.0 [facility] Serum or plasma non-glucuron idated bilirubin measurement (mass/volume)Ordered By: Isi Bullimore on 02-15-2023 Bilirubin.indirect [Mass/Vol] 0.5 mg/dL [facility] Sodium [Moles/volume] in Ser um or PlasmaOrdered By: Isi Bullimore on 02-15-2023 Sodium [Moles/Vol] 139 mmol/L 136-145 [facility] Specific gravity Auto test s trip (U) [Rel density]Ordered By: Isi Xiao on 02-15-2023 Specific gravity (U) [Rel density] 1.018 1.001-1.03 0 [facility] Urea nitrogen [Mass/volume] in Serum or PlasmaOrdered By: Isi Xiao on 02-15-2023 Urea nitrogen [Mass/Vol] 7 mg/dL 7 [facility] Urinalysison 02-15-2023 Appearance (U) Clear Normal Clear [facility] Comment on above: Order Comment: Name Collection Type:: Clean-Voided Midstream Performed By: #### U A #### [facility] [address] [place] [address] Bilirubin,Urine Negative Normal Negative [facility] Comment on above: Order Comment: Name Collection Type:: Clean-Voided Midstream Performed By: #### U A #### [facility] [address] [place] [address] Color (U) Yellow Normal Yellow [facility] Comment on above: Order Comment: Name Collection Type:: Clean-Voided Midstream Performed By: #### U A #### [facility] [address] [place] [address] Glucose Ql (U) Normal Normal Normal [facility] Comment on above: Order Comment: Name Collection Type:: Clean-Voided Midstream Performed By: #### U A #### [facility] [address] [place] [address] [place] Ketones Ql (U) Negative Normal Negative [facility] Comment on above: Order Comment: Name Collection Type:: Clean-Voided Midstream Performed By: #### U A #### [facility] [address] [place] [address] [place] Leukocyte esterase Test strip Ql (U) Negative Normal Negative [facility] Comment on above: Order Comment: Name Collection Type:: Clean-Voided Midstream Performed By: #### U A #### [facility] [address] [place] [address] [place] Nitrite,Urine Negative Normal Negative [facility] Comment on above: Order Comment: Name Collection Type:: Clean-Voided Midstream Performed By: #### U A #### [address] Occult Blood,Urine Negative Normal Negative [facility] Comment on above: Order Comment: Name Collection Type:: Clean-Voided Midstream Result Comment: PERF ORMED BY: [place] [address] PATHOLOGIST SENIOR PROCESS ANALYST FRANCI DON M.D. Performed By: #### U A #### [address] pH (U) 7.0 [pH] Normal 5.0-9.0 [facility] Comment on above: Order Comment: Name Collection Type:: Clean-Voided Midstream Performed By: #### U A #### [address] Protein,Urine Negative Normal Negative [facility] Comment on above: Order Comment: Name Collection Type:: Clean-Voided Midstream Performed By: #### U A #### [address] Specificy [place],Urine 1.018 Normal 1.001-1.03 0 [facility] Comment on above: Order Comment: Name Collection Type:: Clean-Voided Midstream Performed By: #### U A #### [place] [address] [place] Urobilinogen,Urine Normal Normal Normal [facility] Comment on above: Order Comment: Name Collection Type:: Clean-Voided Midstream Performed By: #### U A #### [place] [address] [place] Urine clarity by refractomet ry automatedOrdered By: Isi Xiao on 02-15-2023 Clarity Refractometry automated (U) Clear Clear [facility] Urine glucose measurement by automated test strip (mass/volume)Ordered By: Isi Xiao on 02-15-2023 Glucose Auto test strip (U) [Mass/Vol] Normal mg/dL Normal [facility] Urine hemoglobin detection b y automated test stripOrdered By: Isi Xiao on 02-15-2023 Hemoglobin Auto test strip Ql (U) Negative Negative [facility] Urine leukocyte esterase det ection by automated test stripOrdered By: Isi Xiao on 02-15-2023 Leukocyte esterase Auto test strip Ql (U) Negative Negative [facility] Urobilinogen Auto test strip (U) [Mass/Vol]Ordered By: Isi Xiao on 02-15-2023 Urobilinogen (U) [Mass/Vol] Normal mg/dL Normal [facility] WBC Auto (Bld) [#/Vol]Ordere d By: Isi Ruedaore on 02-15-2023 WBC (Bld) [#/Vol] 7.5 10*3/uL 3.8-11.6 [facility] pH Auto test strip (U)Ordere d By: Isi Xiao on 02-15-2023 pH (U) 7.0 [pH] 5.0-9.0 [facility] Quick Strepon 01-02-2023 S. pyogenes Org specific cx Ql (Throat) Positive Deep Glint Other Quick Strep Deep Glint Other Cholesterol [Mass/volume] in Serum or PlasmaOrdered By: Rob Pryor on 02-21-2022 Cholesterol [Mass/Vol] 223 mg/dL 140-200 [facility] Comment on above: Chol less than 200 m g/dl low riskChol 201-239 mg/dl borderline riskChol 240 mg/dl and greater high risk Cholesterol in LDL Calc [Mas s/Vol]Ordered By: Rob Pryor on 02-21-2022 Cholesterol in LDL [Mass/Vol] 148 mg/dL 0-100 [facility] Comment on above: LDL ATP III CLASSIFI CATIONLDL less than 100 mg/dL OptimalLDL 100-129 mg/dL Near or above optimalLDL 130-159 mg/dL Borderline highLDL 160-189 mg/dL HighLDL greater than 189 mg/dL Very high Cholesterol in VLDL Calc [Ma ss/Vol]Ordered By: Rob Pryor on 02-21-2022 Cholesterol in VLDL [Mass/Vol] 32 mg/dL [facility] Serum or plasma high density lipoprotein (HDL) cholesterol measurementOrdered By: Rob Pryor on 02-21-2022 Cholesterol in HDL [Mass/Vol] 43 mg/dL 35-85 [facility] Comment on above: HDL CHOL ATP-III CLA SSIFICATION Cardiovascular RiskHDL > or equal to 60 mg/dL LOWHDL < 40 mg/dL HIGH Serum or plasma total choles terol/high density lipoprotein (HDL) cholesterol mass ratOrdered By: Rob Pryor on 02-21-2022 Cholesterol.total/Chol esterol in HDL [Mass ratio] 5.2 {ratio} [facility] Triglyceride [Mass/volume] i n Serum or PlasmaOrdered By: Rob Pryor on 02-21-2022 Triglyceride [Mass/Vol] 162 mg/dL 35-149 [facility] Comment on above: TRIG ATP III CLASSIF ICATIONTRIG less than 150 mg/dL NormalTRIG 150-199 mg/dL Borderline highTRIG 200-500 mg/dL High TRIG greater than 500 mg/dL Very highStandard traceable to the Center for Disease Conrtrol and Prevention (CDC) test method. Activated partial thrombopla stin time (aPTT) in platelet poor plasma by coagulation aOrdered By: Janes Vazquez on 02-20-2022 aPTT Coag (PPP) [Time] 36.1 s 25.1-36.5 [facility] Automated erythrocytes count in urine sediment (number/area)Ordered By: Janes Vazquez on 02-20-2022 RBC Auto (Urine sed) [#/Area] 0-1 [HPF] [facility] Automated leukocytes count i n urine sediment (number/area)Ordered By: Janes Vazquez on 02-20-2022 WBC Auto (Urine sed) [#/Area] 1-2 [HPF] [facility] Basophils Auto (Bld) [#/Vol] Ordered By: Janes Vazquez on 02-20-2022 Basophils (Bld) [#/Vol] 0.1 10*3/uL 0.0-0.2 [facility] Basophils/100 WBC Auto (Bld) Ordered By: Janes Vazquez on 02-20-2022 Basophils/100 WBC (Bld) 1.5 % [facility] Bilirubin Test strip Ql (U)O rdered By: Janes Vazquez on 02-20-2022 Bilirubin Ql (U) Negative Negative [facility] Blood hemoglobin measurement (mass/volume)Ordered By: Janes Vazquez on 02-20-2022 Hemoglobin (Bld) [Mass/Vol] 14.5 g/dL 11.8-15.4 [facility] Blood leukocytes automated c ount (number/volume)Ordered By: Janes Vazquez on 02-20-2022 WBC (Bld) [#/Vol] 6.3 10*3/uL 4.5-11.0 [facility] Body fluid albumin measureme nt (mass/volume)Ordered By: Janes Vazquez on 02-20-2022 Albumin (Body fld) [Mass/Vol] 4.0 g/dL 3.2-5.5 [facility] COVID-19 Positive/NegativeOr dered By: Janes Vazquez on 02-20-2022 SARS-CoV-2 (COVID-19) N gene WILLIAM+probe Ql (Resp) Negative Negative [facility] Comment on above: Testing for SARS-CoV -2 by RT-PCRThis test was developed and its performance characteristics determined by [employer] ([employer]) and validated at the [facility]. This test has not been FDA cleared or approved. This test has been authorized by FDA under an Emergency Use Authorization (EUA). This test has been validated in accordance with the FDA's Guidance Document (Policy for Diagnostics Testing in Laboratories Certified to Perform High Complexity Testing under CLIA prior to Emergency Use Authorization for Coronavirus Disease-2019 during the Public Health Emergency) issued on February 10, 2020. This test is only authorized for the duration of time the declaration that circumstances exist justifying the authorization of the emergency use of in vitro diagnostic tests for detection of SARS-CoV-2 virus and/or diagnosis of COVID-19 infection under section 564(b)(1) of the Act, 21 U.S.C. 360bbb-3(b)(1), unless the authorization is terminated or revoked sooner. COVID-19 SOFIAOrdered By: Brannon Vazquez on 02-20-2022 SARS-CoV+SARS-CoV-2 (COVID-19) Ag IA.rapid Ql (Resp) Negative Negative [facility] Comment on above: This is a duplicate Janay SARS Antigen (KI) result to be used for statistical tracking purpose only. Color Auto (U)Ordered By: Brannon Vazquez on 02-20-2022 Color (U) Yellow Yellow [facility] Creatinine and Glomerular fi ltration rate.predicted panel (S/P/Bld)Ordered By: Janes Vazquez on 02-20-2022 Creatinine [Mass/Vol] 0.91 mg/dL 0.44-1.03 [facility] Direct bilirubin measurement Ordered By: Janes Vazquez on 02-20-2022 Bilirubin.direct [Mass/Vol] mg/dL 0.0-0.4 [facility] Eosinophils Auto (Bld) [#/Vo l]Ordered By: Janes Vazquez on 02-20-2022 Eosinophils (Bld) [#/Vol] 0.1 10*3/uL 0.0-0.45 [facility] Eosinophils/100 WBC Auto (Bl d)Ordered By: Janes Vazquez on 02-20-2022 Eosinophils/100 WBC (Bld) 1.8 % [facility] Erythrocyte distribution wid th Auto (RBC) [Ratio]Ordered By: Janes Vazquez on 02-20-2022 Erythrocyte distribution width (RBC) [Ratio] 12.9 % 11.9-15.3 [facility] Estimated glomerular filtrat ion rate (GFR) non- AmericanOrdered By: Janes Vazquez on 02-20-2022 GFR/1.73 sq M.predicted among non-blacks MDRD (S/P/Bld) [Vol rate/Area] > 60 mL/Min [facility] Globulin Calc (S) [Mass/Vol] Ordered By: Janes Vazquez on 02-20-2022 Globulin (S) [Mass/Vol] 2.6 g/dL [facility] Glucose mean value [Mass/vol ume] in Blood Estimated from glycated hemoglobinOrdered By: Rob Pryor on 02-20-2022 Average glucose Estimated from glycated hemoglobin (Bld) [Mass/Vol] 117 mg/dL [facility] Hematocrit Auto (Bld) [Volum e fraction]Ordered By: Janes Vazquez on 02-20-2022 Hematocrit (Bld) [Volume fraction] 42.9 % 34.0-46.4 [facility] Hemoglobin A1c percentageOrd ered By: Rob Konstantin on 02-20-2022 HbA1c (Bld) [Mass fraction] 5.7 % 4.3-5.6 [facility] Comment on above: Increased risk for d iabetes: 5.7 - 6.4diabetes: >6.4glycemic control for adults with diabetes: <7.0 Ketones Auto test strip (U) [Mass/Vol]Ordered By: Janes Vazquez on 02-20-2022 Ketones (U) [Mass/Vol] Negative [facility] and C hemistry - challengeOrdered By: Janes Vazquez on 02-20-2022 Lipase [Catalytic activity/Vol] 30.0 U/L 22-51 [facility] Natriuretic peptide B (Bld) [Mass/Vol] 12.0 pg/mL 5-100 [facility] Laboratory - CoagulationOrde red By: Janes Vazquez on 02-20-2022 PT Coag (PPP) [Time] 12.1 s 9.0-12.9 [facility] - Hematology and Cell countsOrdered By: Janes Vazquez on 02-20-2022 Nucleated RBC/100 WBC (Bld) [Ratio] 0.0 % 0-0.5 [facility] Laboratory - UrinalysisOrder ed By: Janes Vazquez on 02-20-2022 Hyaline casts LM Ql (Urine sed) 0-8 [LPF] [facility] Lymphocytes Auto (Bld) [#/Vo l]Ordered By: Janes Vazquez on 02-20-2022 Lymphocytes (Bld) [#/Vol] 2.0 10*3/uL 1.00-4.8 [facility] Lymphocytes/100 WBC Auto (Bl d)Ordered By: Janes Vazquez on 02-20-2022 Lymphocytes/100 WBC (Bld) 32.1 % [facility] MCH Auto (RBC) [Entitic mass ]Ordered By: Janes Vazquez on 02-20-2022 MCH (RBC) [Entitic mass] 31.2 pg 24.7-34.3 [facility] MCHC Auto (RBC) [Mass/Vol]Or dered By: Janes Vazquez on 02-20-2022 MCHC (RBC) [Mass/Vol] 33.8 g/dL 32.0-35.0 [facility] MCV Auto (RBC) [Entitic vol] Ordered By: Janes Vazquez on 02-20-2022 MCV (RBC) [Entitic vol] 92.2 fL 80-100 [facility] Monocytes Auto (Bld) [#/Vol] Ordered By: Janes Vazquez on 02-20-2022 Monocytes (Bld) [#/Vol] 0.5 10*3/uL 0.0-0.8 [facility] Monocytes/100 WBC Auto (Bld) Ordered By: Janes Vazquez on 02-20-2022 Monocytes/100 WBC (Bld) 7.4 % [facility] Neutrophils Auto (Bld) [#/Vo l]Ordered By: Janes Vazquez on 02-20-2022 Neutrophils (Bld) [#/Vol] 3.6 10*3/uL 1.8-7.7 [facility] Neutrophils/100 WBC Auto (Bl d)Ordered By: Janes Vazquez on 02-20-2022 Neutrophils/100 WBC (Bld) 57.2 % [facility] Nitrite Test strip Ql (U)Ord ered By: Janes Vazquez on 02-20-2022 Nitrite Ql (U) Negative Negative [facility] No Panel InformationOrdered By: Janes Vazquez on 02-20-2022 SARS Antigen (LFIA) [facility] Estimated GFR () > 60 mL/Min [facility] Comment on above: GFR estimated refere nce range: According to KDOQI guidelines, <60 ml/min/1.73m2 is sufficient to diagnose a patient with chronic kidney disease. Pharmacy Creatinine Clearance (Chem N/A [facility] Platelet mean volume Auto (B ld) [Entitic vol]Ordered By: Janes Vazquez on 02-20-2022 Platelet mean volume (Bld) [Entitic vol] 7.3 fL 6.3-10.7 [facility] Platelet poor plasma interna tional normalized ratio (INR) by coagulation assay (relatOrdered By: Janes Vazquez on 02-20-2022 INR Coag (PPP) [Relative time] 1.1 {INR} [facility] Comment on above: INR Therapeutic Rang e A) Pre- and Peroperative OAT started two weeks before surgery. NOT HIP SURGERY: 1.5 - 2.5 HIP SURGERY: 2 - 3B) Primary and secondary prevention of venous THROMBOSIS: 2 - 3C) Active venous thrombosis, pulmonary embolismand prevention of recurrent venous thrombosis: 2 - 3D) Prevention of arterial thromboembolismincluding patients with mechanical heart valves: 3 - 4.5 Platelets Auto (Bld) [#/Vol] Ordered By: Janes Vazquez on 02-20-2022 Platelets (Bld) [#/Vol] 302 10*3/uL 150-450 [facility] Protein Auto test strip (U) [Mass/Vol]Ordered By: Janes Vazquez on 02-20-2022 Protein (U) [Mass/Vol] Negative Negative Fi [facility] Protein [Mass/volume] in Ser um or PlasmaOrdered By: Janes Vazquez on 02-20-2022 Protein [Mass/Vol] 6.6 g/dL 6.1-7.9 [facility] RBC Auto (Bld) [#/Vol]Ordere d By: Janes Vazquez on 02-20-2022 RBC (Bld) [#/Vol] 4.65 10*6/uL 3.60-5.00 [facility] Serum or plasma alanine hickey otransferase measurement without P-5'-P (enzymatic activiOrdered By: Janes Vazquez on 02-20-2022 ALT No additional P-5'-P [Catalytic activity/Vol] 15 U/L 10-60 [facility] Serum or plasma albumin/glob ulin mass ratioOrdered By: Janes Vazquez on 02-20-2022 Albumin/Globulin [Mass ratio] 1.5 {ratio} [facility] Serum or plasma alkaline ariella sphatase measurement (enzymatic activity/volume)Ordered By: Janes Vazquez on 02-20-2022 ALP [Catalytic activity/Vol] 74 U/L 32-92 [facility] Serum or plasma aspartate am inotransferase measurement (enzymatic activity/volume)Ordered By: Janes Vazquez on 02-20-2022 AST [Catalytic activity/Vol] 19 U/L 10-42 [facility] Serum or plasma calcium berlin urement (mass/volume)Ordered By: Janes Vazquez on 02-20-2022 Calcium [Mass/Vol] 9.4 mg/dL 8.2-10.2 [facility] Serum or plasma chloride aurelia surement (moles/volume)Ordered By: Janes Vazquez on 02-20-2022 Chloride [Moles/Vol] 101 mmol/L 95-114 [facility] Serum or plasma glucose berlin urement (mass/volume)Ordered By: Janes Vazquez on 02-20-2022 Glucose [Mass/Vol] 96 mg/dL 70-100 [facility] Comment on above: ADA recommended refe rence rangeRandom Glucose Reference Range is dependent on time and content of last meal. Glucose of more than 200 mg/dL in a nonstressed, ambulatory subject supports the diagnosis of Diabetes Mellitus. Serum or plasma non-glucuron idated bilirubin measurement (mass/volume)Ordered By: Janes Vazquez on 02-20-2022 Bilirubin.indirect [Mass/Vol] TNP [facility] Comment on above: Test not performed Serum or plasma potassium me asurement (moles/volume)Ordered By: Janes Vazquez on 02-20-2022 Potassium [Moles/Vol] 3.6 mmol/L 3.5-5.1 [facility] Serum or plasma sodium measu rement (moles/volume)Ordered By: Janes Vazquez on 02-20-2022 Sodium [Moles/Vol] 138 mmol/L 136-146 [facility] Serum or plasma total biliru bin measurement (mass/volume)Ordered By: Janes Vazquez on 02-20-2022 Bilirubin [Mass/Vol] 0.4 mg/dL 0.3-1.2 [facility] Serum or plasma total carbon dioxide measurement (moles/volume)Ordered By: Janes Vazquez on 02-20-2022 CO2 [Moles/Vol] 26.9 mmol/L 22.0-30.0 [facility] Serum or plasma urea nitroge n measurement (mass/volume)Ordered By: Janes Vazqeuz on 02-20-2022 Urea nitrogen [Mass/Vol] 6 mg/dL 9- [facility] Specific gravity Auto test s trip (U) [Rel density]Ordered By: Janes Vazquez on 02-20-2022 Specific gravity (U) [Rel density] 1.009 1.001-1.03 0 [facility] Squamous epithelial cells de tection in urine sediment by light microscopyOrdered By: Janes Vazquez on 02-20-2022 Epithelial cells.squamous LM Ql (Urine sed) 1-2 [HPF] [facility] Troponin I.cardiac [Mass/vol ume] in Serum or Plasma by High sensitivity methodOrdered By: Rob Pryor on 02-20-2022 Troponin I.cardiac High sensitivity method [Mass/Vol] 3 pg/mL 0- [facility] Troponin I.cardiac [Mass/vol ume] in Serum or Plasma by High sensitivity methodOrdered By: Janes Vazquez on 02-20-2022 Troponin I.cardiac High sensitivity method [Mass/Vol] < 3 pg/mL 0-15 [facility] Urine bacteria detection by automated methodOrdered By: Janes Vazquez on 02-20-2022 Bacteria Auto Ql (U) None seen None Seen [facility] Urine clarity by refractomet ry automatedOrdered By: Janes Vazquez on 02-20-2022 Clarity Refractometry automated (U) Clear Clear [facility] Urine glucose measurement by automated test strip (mass/volume)Ordered By: Janes Vazquez on 02-20-2022 Glucose Auto test strip (U) [Mass/Vol] Normal mg/dL Normal [facility] Urine hemoglobin detection b y automated test stripOrdered By: Janes Vazquez on 02-20-2022 Hemoglobin Auto test strip Ql (U) Negative Negative [facility] Urine leukocyte esterase det ection by automated test stripOrdered By: Janes Vazquez on 02-20-2022 Leukocyte esterase Auto test strip Ql (U) 1+ Negative [facility] Urobilinogen Auto test strip (U) [Mass/Vol]Ordered By: Janes Vazquez on 02-20-2022 Urobilinogen (U) [Mass/Vol] Normal mg/dL Normal [facility] pH Auto test strip (U)Ordere d By: Janes Vazquez on 02-20-2022 pH (U) 6.5 [pH] 5.0-9.0 [facility] [facility] COVID-[facility] SOFIAOrdered By: Gerald Guerrero on 02-13-2022 SARS-CoV+SARS-CoV-2 (COVID-19) Ag IA.rapid Ql (Resp) Negative Negative [facility] Comment on above: This is a duplicate Janay SARS Antigen (KI) result to be used for statistical tracking purpose only. No Panel InformationOrdered By: Soto Guerrero on 02-13-2022 SARS Antigen (LFIA) [facility] Patient Correspondenceon Patient Correspondence [id number]:1 [id number] [facility] [place] Provider Letteron 02-01-2021 Provider Letter (Inserted Image. Michaela ble to display) February 01, [address] [place] [address] EMILY JACOBSON 1970 Dear Emily Jacobson, This letter is to inform you that the providers of [facility], [facility] and [facility] will no longer be responsible for your routine medical care due to repeated noncompliance. Emergency care only will be provided for the thirty (30) days following this letter. During this time period we suggest that you find another physician for your medical needs. A listing of area physicians can be found on [facility]'s website at [email or web address] or you may contact your health plan. We will be glad to forward your records to your new physician as long as we receive a signed release of records form. Sincerely, Dr. Chase Huber M.D. [facility] [place] Patient Letter FTMCon 2020 Patient Letter FT (Inserted Image. Michaela ble to display) December 22, [address] [place] [address] EMILY JACOBSON 1970 Dear Ms. Emily Jacobson, I am corresponding to you by Certified Mail because you have a medical condition, which requires follow up. It was recommended that you have a cystoscopy done on 12/21/20, but you did not show up to your appointment, nor did you reschedule it. Please contact my office at your earliest convenience and we will reschedule your appointment so I can closely monitor your condition. I cannot be responsible for your urologic care if you do not follow up as recommended. Sincerely, Dr. Chase Huber M.D. [facility] [address] [place] [id number] [facility] [place] Ambulatory Clinical Summaryo n 11-30-2020 Ambulatory Clinical Summary {[id number] D:[id number] [facility] [place] Patient Educationon 11-30-19 Patient Education Family Medicine Overactive Bladder, Adult The bladder has two functions that are totally opposite of the other. One is to relax and stretch out so it can store urine (fills like a balloon), and the other is to contract and squeeze down so that it can empty the urine that it has stored. Proper functioning of the bladder is a complex mixing of these two functions. The filling and emptying of the bladder can be influenced by: ? The bladder. ? The spinal cord. ? The brain. ? The nerves going to the bladder. ? Other organs that are closely related to the bladder such as prostate in males and the vagina in females. As your bladder fills with urine, nerve signals are sent from the bladder to the brain to tell you that you may need to urinate. Normal urination requires that the bladder squeeze down with sufficient strength to empty the bladder, but this also requires that the bladder squeeze down sufficiently long to finish the job. In addition the sphincter muscles, which normally keep you from leaking urine, must also relax so that the urine can pass. Coordination between the bladder muscle squeezing down and the sphincter muscles relaxing is required to make everything happen normally. With an overactive bladder sometimes the muscles of the bladder contract unexpectedly and involuntarily and this causes an urgent need to urinate. The normal response is to try to hold urine in by mustapha the sphincter muscles. Sometimes the bladder contracts so strongly that the sphincter muscles cannot stop the urine from passing out and incontinence occurs. This kind of incontinence is called urge incontinence. Having an overactive bladder can be embarrassing and awkward. It can keep you from living life the way you want to. Many people think it is just something you have to put up with as you grow older or have certain health conditions. In fact, there are treatments that can help make your life easier and more pleasant. CAUSES Many things can cause an overactive bladder. Possibilities include: ? Urinary tract infection or infection of nearby tissues such as the prostate. ? Prostate enlargement. ? In women, multiple pregnancies or surgery on the uterus or urethra. ? Bladder stones, inflammation or tumors. ? Caffeine. ? Alcohol. ? Medications. For example, diuretics (drugs that help the body get rid of extra fluid) increase urine production. Some other medicines must be taken with lots of fluids. ? Muscle or nerve weakness. This might be the result of a spinal cord injury, a stroke, multiple sclerosis or Parkinson's disease. ? Diabetes can cause a high urine volume which fills the bladder so quickly that the normal urge to urinate is triggered very strongly. SYMPTOMS ? Loss of bladder control. You feel the need to urinate and cannot make your body wait. ? Sudden, strong urges to urinate. ? Urinating 8 or more times a day. ? Waking up to urinate two or more times a night. DIAGNOSIS To decide if you have overactive bladder, your healthcare provider will probably: ? Ask about symptoms you have noticed. ? Ask about your overall health. This will include questions about any medications you are taking. ? Do a physical examination. This will help determine if there are obvious blockages or other problems. ? Order some tests. These might include: ? A blood test to check for diabetes or other health issues that could be contributing to the problem. ? Urine testing. This could measure the flow of urine and the pressure on the bladder. ? A test of your neurological system (the brain, spinal cord and nerves). This is the system that senses the need to urinate. Some of these tests are called flow tests, bladder pressure tests and electrical measurements of the sphincter muscle. ? A bladder test to check whether it is emptying completely when you urinate. ? Cytoscopy. This test uses a thin tube with a tiny camera on it. It offers a look inside your urethra and bladder to see if there are problems. ? Imaging tests. You might be given a contrast dye and then asked to urinate. X-rays are taken to see how your bladder is working. TREATMENT An overactive bladder can be treated in many ways. The treatment will depend on the cause. Whether you have a mild or severe case also makes a difference. Often, treatment can be given in your healthcare provider's office or clinic. Be sure to discuss the different options with your caregiver. They include: ? Behavioral treatments. These do not involve medication or surgery: ? Bladder training. For this, you would follow a schedule to urinate at regular intervals. This helps you learn to control the urge to urinate. At first, you might be asked to wait a few minutes after feeling the urge. In time, you should be able to schedule bathroom visits an hour or more apart. ? Kegel exercises. These exercises strengthen the pelvic floor muscles, which support the bladder. By toning these musc (more content not included)... [facility] [place] Office/Clinic Noteon 11-30-2020 Urology Office/Clinic Note Chief Complaint 6 month follow up with PVR HPI Staff 6 month follow up with PVR. PVR was 0 ML. Previous DX: Renal mass, Left Dysuria: Denies pain or burning Incomplete bladder emptying: shes unaware Hematuria: denies visible blood, UA shows Trace-intact Frequency: every 1/2 hour some days Urgency: yes sometimes there's no warning or anything. Nocturia: at least 3 times per night Stream: Denies delay, no stop/starting, usually not weak stream Leaking: yes Post void dripping: no Wearing pads/ Depends: no Urge incontinence: yes, she has had an accident in [facility]. Stress incontinence: yes Incontinence without Sensory Awareness: yes Abdominal pain: sometimes the whole thing its tender to touch Flank pain: every now and then. Sexual complaints: no History of Present Illness Pt is here for worsening urinary symptoms. Reviewed UA Pt has no associated symptoms, no fever, no chills, no flank pain. Review of Systems PHQ Score Initial Depression Screen Score: 0 ROS - Provider Constitutional: denies weight loss, denies hot flashes. Eyes: denies eye problems. Gastrointestinal: denies nausea, denies vomiting. Cardiovascular: denies chest pain or angina. Integumentary: no dryness Musculoskeletal: denies musculoskeletal symptoms. ENMT: denies otolaryngeal symptoms. Respiratory: no shortness of breath. Heme/Lymph: denies easy bleeding tendency, denies easy bruising tendency. Psychiatric: no confusion, no anxiety. Genitourinary: denies vaginal discharge, moderate incontinence, denies dysuria, denies hematuria, mild urinary frequency, denies amenorrhea, denies menorrhagia, denies abnormal bleeding, denies pelvic pain, denies genital sores, and denies decreased libido. Physical Exam Vitals & Measurements HR: 85(Peripheral) RR: 16 BP: 147/84 HT: 170.2 cm HT: 170.18 cm WT: 83.0 kg WT: 83 kg BMI: 28.66 General Appearance: alert , no acute distress, well nourished, well developed female. Genitourinary: bladder nonpalpable, no flank pain. Assessment/Plan 1. Urge incontinence (N39.41: Urge incontinence) Moderate Will schedule Cysto with UD. The procedure risks, benefits, details, and treatment alternatives have been discussed with the patient. These include bleeding, infection, recurrent scar in over 50%, need for repeat dilation or other procedures, no symptom relief with dilation, among others. Full informed consent has been obtained. Will order Local anesthesia. 2. Stress incontinence (N39.3: Stress incontinence (female) (male)) Mild, pt had a hysterectomy in 2000 3. Frequent urination (R35.0: Frequency of micturition) Mild, ongoing 4. Nocturia (R35.1: Nocturia) Mild, 3x a night This interesting patient has had 4 vaginal deliveries of children successfully of course had a hysterectomy but still has ovaries many years ago. Slowly developed an overactive bladder urgency and frequency nocturia also combination of stress urinary incontinence with laughing or sneezing. She had been on oxybutynin but she was reluctant to take it because she thought it might lead to infections so was a short-term look. What I am going to do was a cystoscopy possible dilatation Ernie test assess the sphincter control bladder capacity etc. Patient is otherwise healthy with clean urine today. So cystoscopy UDA under local I explained to patient and patient is willing Follow-up With When Contact Information MAYO YOUNG, Chase Boyce [address] [place] [phone] Additional Instructions: Patient Education Overactive Bladder, Adult I, Evie Tomlinson, personally scribed for Dr. uHber on 11/30/2020 10:09:18. . Documentation recorded by the marco antonioibEvie cuellar, accurately reflects the services(s) I performed and decisions made by me. Authenticated by Dr. Huber on 11/30/2020 10:14:23. Problem List/Past Medical History Ongoing Arthritis BMI 28.0-28.9,adult Family history of bladder cancer Frequent urination Headaches, cluster History of kidney infection Nocturia Renal mass, left Smoker Stress incontinence Urge incontinence Historical No qualifying data Procedure/Surgical History Breast surgery, Hysterectomy. Medications ondansetron 4 mg Tab, Oral, q8hr Allergies ceFAZolin (Hives) Social History Tobacco Smoker, current status unknown Tobacco Use:. Never Smokeless Tobacco Use:. Cigarettes, 11/30/2020 Family History Arthritis: Mother and Father. Diabetes mellitus type 1: Mother. Heart disease: Mother and Father. Hyperlipidemia: Mother and Father. Hypertension: Mother and Father. Lab Results Ambulatory Point of Care Results Bilirubin Urine Dipstick: Negative (11/30/20 09:25:00) Blood Urine Dipstick: Trace-intact (11/30/20 09:25:00) Glucose Urine Dipstick: Negative (11/30/20 09:25:00) Ketones Urine Dipstick: Negative (11/30/20 09:25:00) Leukocytes Urine Dipstick: Negative (11/30/20 09:2 (more content not included)... [facility] [place] Comment on above: Result Comment: Elec tronically Signed By: Chase HUBER MD\.br\Date and Time Signed: 11/30/20 10:14 EST\.br\Electronically Co-Signed By: Evie Tomlinson\.br\Date and Time Co-Signed: 11/30/20 10:09 EST Provider Letteron 11-17-2020 Provider Letter (Inserted Image. Michaela ble to display) November 17, 2020 [address] [place] [address] EMILY JACOBSON 1970 To Whom It May Concern, Please excuse above patient from work. Date of Illness: From: 11/17/2020 To: _11/17/2020 May Return to Work On:11/18/2020 Restrictions: _ Comments: Patient had a Doctor appointment today. Sincerely, Dr Gary Black [facility] [address], [address] [place] [address] [facility] Provider Letteron 09-27-2020 Provider Letter (Inserted Image. Michaela ble to display) September 27, 2020 [address] [place] [address] MEILY JACOBSON 1970 Dear Emily Jacobson, This letter is to inform you that you have missed at least two appointments in our office within a twelve-month period which you did not cancel. According to our records those missed appointments were on: 06/07/2020 & 09/27/[address] Black. We make every effort to accommodate patients as quickly as possible. If we know you are not able to make an appointment, we can schedule another patient who needs to see one of our providers. As our previous letter stated, there is a $30.00 charge for a second missed *no show* appointment. This is in accordance with our office policy. If you are unable to keep future appointments, please let us know 24 hours in advance. Sincerely, [facility] [facility] ED Note-Physicianon 06-08-20 ED Note-Physician [id number]:127 [facility] Ambulatory Clinical Summaryo n 06-07-2020 Ambulatory Clinical Summary {[id number] D:[id number] [facility] Patient Educationon 06-07-20 20 Patient Education Family Medicine Abdominal Pain, Women Abdominal (stomach, pelvic, or belly ) pain can be caused by many things. It is important to tell your doctor: ? The location of the pain. ? Does it come and go or is it present all the time? ? Are there things that start the pain (eating certain foods, exercise)? ? Are there other symptoms associated with the pain (fever, nausea, vomiting, diarrhea)? All of this is helpful to know when trying to find the cause of the pain. CAUSES ? Stomach: virus or bacteria infection, or ulcer. ? Intestine: appendicitis (inflamed appendix ), regional ileitis (Crohn's disease ), ulcerative colitis (inflamed colon ), irritable bowel syndrome, diverticulitis (inflamed diverticulum of the colon ), or cancer of the stomach or intestine. ? Gallbladder disease or stones in the gallbladder. ? Kidney disease, kidney stones, or infection. ? Pancreas infection or cancer. ? Fibromyalgia (pain disorder ). ? Diseases of the female organs: ? Uterus: fibroid (non-cancerous ) tumors or infection. ? Fallopian tubes: infection or tubal . ? Ovary: cysts or tumors. ? Pelvic adhesions (scar tissue ). ? Endometriosis (uterus lining tissue growing in the pelvis and on the pelvic organs ). ? Pelvic congestion syndrome (female organs filling up with blood just before the menstrual period ). ? Pain with the menstrual period. ? Pain with ovulation (producing an egg ). ? Pain with an IUD (intrauterine device, control ) in the uterus. ? Cancer of the female organs. ? Functional pain (pain not caused by a disease, may improve without treatment ). ? Psychological pain. ? Depression. DIAGNOSIS Your doctor will decide the seriousness of your pain by doing an examination. ? Blood tests. ? X-rays. ? Ultrasound. ? CT scan (computed tomography, special type of X-ray ). ? MRI (magnetic resonance imaging ). ? Cultures, for infection. ? Barium enema (dye inserted in the large intestine, to better view it with X-rays ). ? Colonoscopy (looking in intestine with a lighted tube ). ? Laparoscopy (minor surgery, looking in abdomen with a lighted tube ). ? Major abdominal exploratory surgery (looking in abdomen with a large incision ). TREATMENT The treatment will depend on the cause of the pain. ? Many cases can be observed and treated at home. ? Aaji-drp-xieebpk medicines recommended by your caregiver. ? Prescription medicine. ? Antibiotics, for infection. ? control pills, for painful periods or for ovulation pain. ? Hormone treatment, for endometriosis. ? Nerve blocking injections. ? Physical therapy. ? Antidepressants. ? Counseling with a psychologist or psychiatrist. ? Minor or major surgery. HOME CARE INSTRUCTIONS ? Do not take laxatives, unless directed by your caregiver. ? Take dvwx-vzx-dzskvje pain medicine only if ordered by your caregiver. Do not take aspirin because it can cause an upset stomach or bleeding. ? Try a clear liquid diet (broth or water) as ordered by your caregiver. Slowly move to a bland diet, as tolerated, if the pain is related to the stomach or intestine. ? Have a thermometer and take your temperature several times a day, and record it. ? Bed rest and sleep, if it helps the pain. ? Avoid sexual intercourse, if it causes pain. ? Avoid stressful situations. ? Keep your follow-up appointments and tests, as your caregiver orders. ? If the pain does not go away with medicine or surgery, you may try: ? Acupuncture. ? Relaxation exercises (yoga, meditation). ? Group therapy. ? Counseling. SEEK MEDICAL CARE IF: ? You notice certain foods cause stomach pain. ? Your home care treatment is not helping your pain. ? You need stronger pain medicine. ? You want your IUD removed. ? You feel faint or lightheaded. ? You develop nausea and vomiting. ? You develop a rash. ? You are having side effects or an allergy to your medicine. SEEK IMMEDIATE MEDICAL CARE IF: ? Your pain does not go away or gets worse. ? You have a fever. ? Your pain is felt only in portions of the abdomen. The right side could possibly be appendicitis. The left lower portion of the abdomen could be colitis or diverticulitis. ? You are passing blood in your stools (bright red or black tarry stools, with or without vomiting). ? You have blood in your urine. ? You develop chills, with or without a fever. ? You pass out. MAKE SURE YOU: ? Understand these instructions. ? Will watch your condition. ? Will get help right away if you are not doing well or get worse. Document Released: 08/23/2008 Document Revised: 01/18/2013 Document Reviewed: 09/13/2010 ExitCare? Patient Information ?2013 [employer]. [facility] Provider Letteron 06-07-2020 Provider Letter (Inserted Image. Michaela ble to display) June 07, 2020 EMILY [address] [facility] [address] [place] [address] EMILY JACOBSON 1970 Dear Emily Jacobson, You missed your scheduled appointment on: 06-07-2020 and the purpose of this letter is to inform you of our *No Show Policy*. Our appointment slots fill rapidly and when we have a no show appointment that time is lost. We could have used that time slot to care for a patient who needed to see one of our providers. Therefore, we ask that you call 24 hours in advance to cancel your appointment. After your second no show within a twelve (12) month period, you will be assessed a $30 charge. This policy is in place so that we can meet the needs of all of our patients and we do appreciate your understanding. Sincerely, [facility] [address], [place] [address] [facility] Comment on above: Other Comment: Pt re scheduled for the same day. Urology Office/Clinic Noteon 06-07-2020 Urology Office/Clinic Note Chief Complaint f/u to MRI HPI Staff Pt here to f/u to MRI done 06/02/2020 due to left renal mass, incontinence of urine, hx of kidney infection and family history of bladder cancer. Pt is no longer taking Oxybutynin therapy Dysuria: No Incomplete bladder emptying: Feels empty occasionally, does not feel she empties due to how often she goes. Hematuria: No denies blood in her urine Frequency: No q2h Urgency: Yes Nocturia: Normally 2x Stream: Good stream Leaking: Pt states last week, she had two incidents where she wet the bed, no urge to void woke her but she woke after she felt she was wet. Post void dripping: No Wearing pads/ Depends: No Urge incontinence: Does not always make it to the restroom Stress incontinence: _ Abdominal pain: Left side of abdomen that radiates to suprapubic area across to the right side. Pt states that she also will get suprapubic pain that radiates through to her back, like a through and through pain Flank pain: Sexual complaints: No Review of Systems PHQ Score Initial Depression Screen Score: 0 Physical Exam Vitals & Measurements HR: 85(Peripheral) BP: 135/82 HT: 170.18 cm WT: 79.4 kg BMI: 27.42 ABd S NT ND no g, rb CVAT reported b/l Assessment/Plan 1. Renal mass, left (N28.89: Other specified disorders of kidney and ureter) MRI confirmed resolution of this mass indicating a likely lobar nephronia in a patient still reporting abd pain and post prandial globus sensation but a upper GI last year in [place] with a Dr. Richards. I was not able to get a note to him as he was not listed in our system nor could I find him online. At this time I explained that her renal mass resolved and she would do well to simply stop her oxybutynin as she reports she no longer needs this, and she should come back in PRN. I did not think her pain was urologic in origin. Pt is going to stop oxybutynin but was agreeable to return in3 months to recheck her urine for blood as she does smoke. Encourage smoking cessation. Check PVR next visit given renal infection with mass lesion attributed to infection. Ordered: Urnls Dip Stick Auto w/o Microscopy POC [id number] Orders: oxybutynin, 5 mg = 1 tab(s), Oral, BID, PRN Other (see comment), 1 tab q8hr as needed for urgency, # 30 tab(s), Refills(s) 6, [facility] Follow-up No qualifying data available Patient Education Abdominal Pain, Women Problem List/Past Medical History Ongoing Arthritis Family history of bladder cancer Headaches, cluster History of kidney infection Incontinent of urine Renal mass, left Smoker Historical No qualifying data Procedure/Surgical History Breast surgery, Hysterectomy. Medications ondansetron 4 mg Tab, Oral, q8hr Allergies ceFAZolin (Hives) Social History Tobacco 10 or more cigarettes (1/2 pack or more)/day in last 30 days Tobacco Use:., 06/07/2020 Family History Arthritis: Mother and Father. Diabetes mellitus type 1: Mother. Heart disease: Mother and Father. Hyperlipidemia: Mother and Father. Hypertension: Mother and Father. Lab Results Ambulatory Point of Care Results Bilirubin Urine Dipstick: Negative (06/07/20 11:30:00) Blood Urine Dipstick: Negative (06/07/20 11:30:00) Glucose Urine Dipstick: Negative (06/07/20 11:30:00) Ketones Urine Dipstick: Negative (06/07/20 11:30:00) Leukocytes Urine Dipstick: Negative (06/07/20 11:30:00) Nitrite Urine Dipstick: Negative (06/07/20 11:30:00) Protein Urine Dipstick: Negative (06/07/20 11:30:00) Specific [place] Urine Dipstick: >=1.030 (06/07/20 11:30:00) Urine Appearance Urine Dipstick: Clear (06/07/20 11:30:00) Urine Color Urine Dipstick: Yellow (06/07/20 11:30:00) Urobilinogen Urine Dipstick: Normal 0.2-1 EU/dl (06/07/20 11:30:00) pH Urine Dipstick: 6.5 (06/07/20 11:30:00) [facility] [place] Comment on above: Result Comment: Elec tronically Signed By: Sofia YOUNG, Gary Gonzales\.br\Date and Time Signed: 06/07/20 17:17 EDT Coding Summary.on 06-06-2020 Coding Summary. CODING DATE: 020 FINAL [facility] Hospital STATUS: Home (Routine DC) PAYOR: Self Pay APC DESCRIPTION 5572 Level 2 Imaging with Contrast ADMIT DX: REASON FOR VISIT DX: N28.89 Other specified disorders of kidney and ureter FINAL DX: PRINCIPAL: N28.89 Other specified disorders of kidney and ureter SECONDARY: PYMT PROC APC STAT DESCRIPTION DOCTOR NAME DATE NOTE: The code number assigned matches the documented diagnosis and / or procedure in the patient's chart. However, the narrative phrase printed from the coding software may appear abbreviated, or result in slightly different terminology. Coded By: Alexia Zamora CphT Date Saved: 06/06/2020 11:13 am [facility] Consent for Treatmenton 05-11 Consent for Treatment [id number]:12 7 Normal [place] MRI Abdomen w/ + w/o Contras ton 06-02-2020 MRI Abdomen w/ + w/o Contrast Exam Date/Time: 06/02/2020 09:05 EDT Reason for Exam: Other specified disorders of kidney and ureter;Mass Report IMPRESSION: Normal appearance, with normal enhancement of the kidneys. In correlation with the reports from the outside images, the reported finding likely represented transient infectious/inflammatory process (such as pyelonephritis), which has since resolved. No current abnormalities within the kidneys or renal mass. EXAMINATION: MRI Abdomen w/ + w/o Contrast HISTORY: Mass, Other specified disorders of kidney and ureter. Outside CT and renal ultrasound showing abnormal finding within the left kidney. TECHNIQUE: Multiplanar MRI with multiple sequences before and after contrast. Contrast: IV: 15 ml of gadobenate dimeglumine (MULTIHANCE) Oral: None. COMPARISON: No images available for comparison. Reports from the outside images RESULT: Liver: No hepatic mass. Biliary: No bile duct dilation. Gallbladder is normal. Spleen: No mass. No splenomegaly. Pancreas: No mass or duct dilation. Adrenals: No mass. Kidneys: No solid or cystic mass. No hydronephrosis. GI tract: No dilation or wall thickening. Lymph nodes: No lymphadenopathy. Mesentery / Peritoneum / Retroperitoneum: No ascites or mass. Vasculature: The celiac axis and SMA are patent. The portal vein and branches, splenic vein, SMV, and hepatic veins are patent. Bones/Soft Tissues: No significant finding. Report Lower chest: Unremarkable. FINAL REPORT Dictated: 06/02/2020 11:31 am Gary Donovan MD Signed (Electronic Signature): 06/02/2020 11:31 am Signed by: Gary Donovan MD Transcribed by: ROGER Technologist: ODALYS Technical Comments MultiHance Contrast amount in ml's: 15 Normal [place] RAD - MISCon 06-02-2020 RAD - MISC [id number]:12 7 Normal [place] RAD - MRI Screening Formon 0 06-02-2020 RAD - MRI Screening Form [id number]:12 7 Normal [place] Ambulatory Clinical Summaryo n 05-05-2020 Ambulatory Clinical Summary {[id number] Normal [place] Progress Noteson 02-08-2019 Protein mass conc Encounter Department : [facility] Progress Notes by Rafia Hale CMA at 02/08/2019 10:00 AM Author: Rafia Hale CMAService: ?Author Type: Yield Clerk Filed: 03/03/2019 8:50 AMEncounter Date: 02/08/2019Status: Signed Pl Sql Developer: Rafia Hale CMA (Yield Clerk) Reminder placed Normal [facility] Protein mass conc Encounter Department : [facility] Progress Notes by Silverio Nicholas II, DO at 02/08/2019 10:00 AM Author: Silverio Nicholas II DOService: ?Author Type: Physician Filed: 03/02/2019 8:18 PMEncounter Date: 02/08/2019Status: Signed Pl Sql Developer: Silverio Nicholas II, DO (Physician) Please add a reminder for repeat colonoscopy in 3 years. Normal [facility] Protein mass conc Encounter Department : [facility] Progress Notes by Silverio Nicholas II, DO at 02/08/2019 10:00 AM Author: Silverio Nicholas II DOService: ?Author Type: Physician Filed: 02/08/2019 11:11 AMEncounter Date: 02/08/2019Status: Signed Pl Sql Developer: Silverio Nicholas II, DO (Physician) Emily Jacobson [address] [facility] [address] : 48 y.o.: 1970Phone: (home) Encounter Date: 02/08/2019 Vitals BP 110/78 Pulse 94 Temp 97.3 ?F (36.3 ?C) Ht 5' 6 (1.676 m) Wt 148 lb (67.1 kg) SpO2 97% BMI 23.89 kg/m? Assessment and Plan Diagnoses and all orders for this visit: Chronic constipation (Primary) Comments: Miralax Increase water Avoid dairy, peanut butter, bread, etc Refer GI Orders: - Ambulatory referral to Gastroenterology Prolapsed internal hemorrhoids Comments: Avoid constipation/straining Refer GI Orders: - Ambulatory referral to Gastroenterology HPI Chief Complaint Chief Complaint Patient presents with -Rectal Problems The patient is here for the following problems were assessed/reviewed at today's visit. Pertinent data reviewed with patient at visit I have reviewed and updated all preliminary medical information for accuracy with the patient and corrected and completed as necessary. Sensation of needing to have a BM. Tries to go and has prolapsed tissue. No pain or bleeding. No home treatment. Long history of loose stools. Now with small, hard bowel movements. Review of Systems: As noted in HPI Review of Systems Constitutional: Negative for activity change, fatigue, fever and unexpected weight change. Cardiovascular: Negative for chest pain. Gastrointestinal: Positive for constipation. Negative for abdominal distention, abdominal pain, anal bleeding, blood in stool, diarrhea and vomiting. Neurological: Negative for dizziness, weakness and numbness. Physical Exam Constitutional: She appears well-developed and well-nourished. HENT: Head: Normocephalic and atraumatic. Eyes: Conjunctivae are normal. Neck: Normal range of motion. Neck supple. No thyromegaly present. Cardiovascular: Normal rate, regular rhythm and normal heart sounds. Pulmonary/Chest: Effort normal and breath sounds normal. Abdominal: Soft. Bowel sounds are normal. She exhibits no distension and no mass. There is tenderness. There is no guarding. Mild lower abd discomfort. No HSM/mass. Negative Jones's/McBurney's. Rectal: Receiving Associate Cat - no obvious external lesion. Mild decreased tone. Non-tender. No palpable mass or stool. Lymphadenopathy: She has no cervical adenopathy. Psychiatric: She has a normal mood and affect. Judgment normal. Nursing note and vitals reviewed. No results found for this or any previous visit (from the past 12 hour(s)). Current Outpatient Medications Ordered in [facility] MedicationSigDispenseRefi ll -gabapentin (NEURONTIN) 300 mg capsuleTAKE 1 CAPSULE BEFORE BEDTIME ONCE A DAY ORALLY 30 DAY(S)2 -IBUPROFEN (IBU-200 PO)Take by mouth. No current [facility]-ordered facility-administered medications on file. Electronically Signed by: Mariana Ba; 02/08/2019 11:10 AM Normal [facility] Progress Noteson 02-02-2019 Protein mass conc Encounter Department : [facility] Progress Notes by Silverio Nicholas II, DO at 02/02/2019 5:30 PM Author: Silverio Nichloas II, DOService: ?Author Type: Physician Filed: 02/02/2019 6:07 PMEncounter Date: 02/02/2019Status: Signed Pl Sql Developer: Silverio Nicholas II, DO (Physician) Emily Giles Fernando [address] [facility] [address] : 48 y.o.: 1970Phone: (home) Encounter Date: 02/02/2019 Vitals BP 126/84 Pulse 58 Temp 96.9 ?F (36.1 ?C) Ht 5' 6 (1.676 m) Wt 147 lb 12.8 oz (67 kg) SpO2 98% BMI 23.86 kg/m? 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 Pertinent data reviewed with patient at visit I have reviewed and updated all preliminary medical information for accuracy with the patient and corrected and completed as necessary. Lateral right elbow pain x 2-3 weeks. No isolated injury. Worse with crocodile farmer. No weakness. No home treatment Review of Systems: As noted in HPI Review of Systems Constitutional: Negative for activity change, chills and fever. Musculoskeletal: Positive for arthralgias (see cc). Neurological: Negative for weakness and numbness. Physical Exam Constitutional: She appears well-developed and well-nourished. Musculoskeletal: FROM right elbow. Tender lateral epicondyle. No palpable defect. Increased discomfort with wrist extension/supination vs resist. Strength 5/5. Nursing note and vitals reviewed. No results found for this or any previous visit (from the past 12 hour(s)). Current Outpatient Medications Ordered in [facility] MedicationSigDispenseRefi ll -gabapentin (NEURONTIN) 300 mg capsuleTAKE 1 CAPSULE BEFORE BEDTIME ONCE A DAY ORALLY 30 DAY(S)2 -IBUPROFEN (IBU-200 PO)Take by mouth. No current [facility]-ordered facility-administered medications on file. Electronically Signed by: Mariana Ba; 02/02/2019 6:07 PM [facility] CBC W/DIFFon 01-01-2019 CBC W/DIFF 6.3 4.32 13.4 39.7 92 31.0 33.8 12.9 324 57 31 8 3 1 3.6 2.0 0.5 0.2 0.1 0 0.0 ORGANISM: Antibiotic CINDA Interpretation GLUCOSE 108 BUN BLOOD 14 CREATININE, SERUM 0.77 EGFR IF NONAFRICN AM 92 EGFR AFRICANAMERICAN 106 BUN / CREAT RATIO 18 SODIUM 141 POTASSIUM 4.4 CHLORIDE 101 CARBON DIOXIDE 22 CALCIUM 9.9 PROTEIN, TOTAL, SERUM 7.0 ALBUMIN 4.3 GLOBULIN, TOTAL 2.7 A/G RATIO 1.6 BILIRUBIN, TOTAL <0.2 ALKALINE PHOSPHATASE, S 81 AST (SGOT) 16 ALT (SGPT) 14 ORGANISM: Antibiotic CINDA Interpretation CHOLESTEROL, TOTAL 176 TRIGLYCERIDES 97 HDL CHOLESTEROL 65 VLDL CHOLESTEROL BRODERICK 19 LDL CHOLESTEROL CALC 92 ORGANISM: Antibiotic CINDA Interpretation THYROID STIMULATING HORMONE 1.330 Performed At: [address] [facility] [id number] Iain Hoskins PhD [id number] ORGANISM: Antibiotic CINDA Interpretation HEMOGLOBIN A1C, B 5.7 Prediabetes: 5.7 - 6.4 Diabetes: >6.4 Glycemic control for adults with diabetes: <7.0 Normal [facility] Comment on above: Performed By: #### L [id number] #### [facility] 1 , Progress Noteson 12-29-2018 Protein mass conc Encounter Department : [facility] Progress Notes by Silverio Nicholas II, DO at 12/29/2018 8:30 AM Author: Silverio Nicholas II DOService: (none)Author Type: Physician Filed: 01/02/2019 3:25 PMEncounter Date: 12/29/2018Status: Signed Pl Sql Developer: Silverio Nicholas II, DO (Physician) Sugars are mildly elevated. Remainder of the labs are normal. Recommend a diet with extra vegetables and lean protein with limited carbs. Get regular exercise. Fasting labs and follow up 6 months. Normal [facility] Protein mass conc Encounter Department : [facility] Progress Notes by Izabella Serrano CMA at 12/29/2018 8:30 AM Author: Izabella Serrano CMAService: (none)Author Type: Felter Tennis [employer]alls Filed: 01/05/2019 10:44 AMEncounter Date: 12/29/2018Status: Signed Pl Sql Developer: Izabella Serrano CMA (Felter [employer]) LM ON VM for patient to return call Normal [facility] Protein mass conc Encounter Department : [facility] Progress Notes by Silverio Nicholas II, DO at 12/29/2018 8:30 AM Author: Silverio Nicholas II DOService: (none)Author Type: Physician Filed: 12/30/2018 8:40 PMEncounter Date: 12/29/2018Status: Signed Pl Sql Developer: Silverio Nicholas II, DO (Physician) Emily Chan Fernando [address] [facility] [address] : 48 y.o.: 1970Phone: (home) Encounter Date: 12/30/2018 Vitals BP 118/80 Pulse 100 Temp 97.7 ?F (36.5 ?C) Ht 5' 6 (1.676 m) Wt 132 lb (59.9 kg) SpO2 97% BMI 21.31 kg/m? Assessment and Plan Diagnoses and all orders for this visit: Acute maxillary sinusitis, recurrence not specified (Primary) Comments: OTC Mucinex OTC Nasacort Increase fluids Call 3-4 days Chronic constipation Assessment AND Plan: Increase fiber Consider Miralax Check labs May need GI eval Hyperglycemia Assessment AND Plan: Stress a low carb diet with regular exercise Limit/avoid alcohol and pop Check labs Orders: - Comprehensive Metabolic Panel - Hemoglobin A1C, B Sleep disturbance Assessment AND Plan: Sleep hygiene Limit caffeine Follow with Nikki Adjustment disorder with depressed mood Assessment AND Plan: Struggling with father's Stress management Follow with [facility] also available for counseling Encouraged to communicate feelings Tobacco abuse Assessment AND Plan: Smokes 1 pack/day 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 Pertinent data reviewed with patient at visit I have reviewed and updated all preliminary medical information for accuracy with the patient and corrected and completed as necessary. New to the office. Constipation x 6 months. Previously diarrhea. No blood or mucous. No diet changes. Appetite is up and down. Eats out and at home. Drinks alcohol BIW 5-6 beers + 2 shots of whiskey. 20 ox Mt Dew and 12 oz coffee daily. No recent labs. Home BS 122. Follows with Nikki for anger issues. Treated with Trazodone. Poor sleep since her sister in 2010 and with ehr father's recent . Persistent right shoulder pain. Had an injection by Dr. Beal. Has not followed up. Left eye itching and some congestion x 24 hours. Review of Systems: As noted in HPI Review of Systems Constitutional: Negative for activity change, chills, fatigue and fever. HENT: Positive for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 [address] Cardiology Progress Note Signed Patient: Emily Beatty MR#: [id number] : 1970 Acct:[id number] Age/Sex: 51 / F Adm Date: 2 Loc: Room: [address] [place] [address] Type : ADM INOo Attending Dr: Rob Pryor MD Copies to: ~ Date of Service: 02/21/2022 Subjective Principal diagnosis: Atypical chest pain Interval history: Patient had no further cardiac symptoms. Echocardiogram was unremarkable and nuclear stress test was normal. Patient can be discharged home today with no need for further cardiac evaluation or follow-up Exam Physical Exam Vital Signs: Temp Pulse Resp BP Pulse Ox 97.9 F 65 14 137/67 99 02/21/22 12:00 02/21/22 12:00 02/21/22 12:00 02/21/22 12:00 02/21/22 12:00 Const General: cooperative, healthy appearing, comfortable, no acute distress and welldeveloped Nutritional Appearance: average body habitus Orientation: alert, awake and oriented x3 HEENT Head: normal to inspection, normocephalic and atraumatic Ears: hearing grossly normal bilaterally Nose: external nose normal Face and sinus: normal facial exam Eyes General: appearance normal, both eyes and all related structures Conjunctivae: conjunctivae normal Pupils: PERRL Neck Neck: normal visual inspection, full ROM, no lymphadenopathy, trachea midline and supple Neck mass: No Thyroid: thyroid normal Carotids: normal carotid upstroke Resp Effort & Inspection: normal respiratory effort Auscultation: clear to auscultation bilaterally Cardio Jugular venous pressure: no JVD Palpation: normal PMI Rate: bradycardic Rhythm: regular rhythm and abnormal rhythm Heart Sounds: S1 normal and S2 normal GI Inspection: normal to inspection Palpation: soft and no hepatosplenomegaly Extrem General: no clubbing, cyanosis or edema Objective Labs CBC & Chem 7: 02/20/22 08:46 02/20/22 08:46 Labs: Laboratory Results - last 24 hr 02/20/22 02/20/22 02/20/22 13:15 15:02 15:02 Estimat Average Glucose 117 Hemoglobin A1c 5.7 H Troponin I High Sens 3 Triglycerides Cholesterol LDL Cholesterol, Calc VLDL Cholesterol HDL Cholesterol Cholesterol/HDL Ratio COVID-19 Clin Com Negative 02/20/22 02/21/22 17:54 06:19 Estimat Average Glucose Hemoglobin A1c Troponin I High Sens 3 Triglycerides 162 H Cholesterol 223 H LDL Cholesterol, Calc 148 H VLDL Cholesterol 32 HDL Cholesterol 43 Cholesterol/HDL Ratio 5.2 COVID-19 Clin Com A&P - Cardiology (1) Chest pain: Assessment/Problem Details: Atypical in nature with minimal ST segment abnormalities and normal troponin. Nuclear stress test and echocardiograms came back unremarkable Code(s): R07.9 - Chest pain, unspecified Status: Acute Plan: Discharge home with no need for further cardiac testing (2) Dizziness: Assessment/Problem Details: No indication of significant cardiac arrhythmias she has only mild sinus bradycardia which I do not believe it is contributing Code(s): R42 - Dizziness and giddiness Status: Acute Plan: Observe (3) Tobacco abuse: Code(s): Z72.0 - Tobacco use Status: Acute Plan: Counseled for tobacco cessation (4) Family history of premature CAD: Code(s): Z82.49 - Family history of ischemic heart disease and other diseases of the circulatory system Status: Acute Plan: Aggressive management of risk factor for CAD specifically tobacco cessation Documented By: Domingo Cordova MD, [facility] 2 [id number] Signed By: <Electronically signed by MD MERARI Cordova> 02/21/22 [id number] [facility] Work Phone: 1(685) 718-358704-14-2022 Progress note [facility] February 21, 2022 3:23pm Note Date/Time February 21, 2022 9:2 7am [facility] [address] [place] [address] Hospitalist Progress Note Signed Patient: Emily Beatty MR#: [id number] : 1970 Acct:[id number] Age/Sex: 51 / F Adm Date: 2 Loc: Room: [address] [place] [address] Type : ADM INOo Attending Dr: Rob Pryor MD Copies to: ~ Date of Service: 02/21/2022 Subjective Subjective Narrative: Patient seen evaluated this morning resting in bed. Reports having chest pain for short period time this morning at 6 AM. Not as intense as the chest pain she had prior to arrival. Denies shortness of breath or lightheadedness. Denies headache. No events on telemetry. Denies nausea, vomiting, abdominal pain. Reports some right shoulder and elbow pain with some associated paresthesias of the fingers without weakness States this has been present on and off for months, worse in the mornings. Exam Physical Exam Vital Signs: Temp Pulse Resp BP Pulse Ox 97.6 F 64 12 133/77 98 02/20/22 14:55 02/21/22 04:00 02/21/22 04:00 02/21/22 04:00 02/21/22 04:00 Narrative: GENERAL APPEARANCE: Alert and cooperative. In no acute distress. HEAD: Normocephalic, atraumatic. EYES: Conjunctiva clear. THROAT: Mucous membranes pink and moist. NECK: Trachea midline. CARDIAC: Normal rate. Regular rhythm. LUNGS: Clear to auscultation bilaterally. No accessory muscle use. No conversational dyspnea. Respirations non-labored. ABDOMEN: Normoactive bowel sounds. Soft, nondistended, nontender. No guarding, rebound, or rigidity. MSK: No joint erythema, tenderness, or effusion. EXTREMITIES: No pitting edema. Capillary refill <2 seconds. Radial pulses 2+ bilaterally NEUROLOGICAL: A&Ox3. Moves all extremities spontaneously. 5/5 strength in upperextremities bilaterally. Positive Tinel's over right cubital tunnel. SKIN: Warm and dry. PSYCHIATRIC: Mood and affect appropriate for situation. Answers questions appropriately. Objective Lab Results CBC & Chem 7: 02/20/22 08:46 02/20/22 08:46 Microbiology Results Microbiology 02/20/22 13:15 Nasal SARS Antigen (LFIA) - Final Meds Allergies and Active Meds Allergies cefazolin [From [facility]] Allergy (Verified 02/20/22 13:25) Hives Active Meds: Active Medications Generic Name Dose Route Start Last Admin Trade Name Freq PRN Reason Stop Dose Admin Acetaminophen 650 mg 02/20/22 13:39 Acetaminophen 325 Mg Tablet PO 02/20/23 13:38 Q6HR PRN Pain Scale 1 - 3 or fever Enoxaparin Sodium 40 mg 02/21/22 10:00 Enoxaparin 40 Mg/0.4 Ml Syringe SUBCUT 02/21/23 09:59 DAILY@10 YENNY Guaifenesin/Dextromethorphan 10 ml 02/20/22 13:39 Guaif/Dextromethorphan Syrup 10 Ml Udc PO 02/20/23 13:38 Q8H PRN Cough Hydralazine HCl 10 mg 02/20/22 13:39 Hydralazine 20 Mg/Ml Vial IV-PUSH 02/20/23 13:38 Q4H PRN Hypertension Nitroglycerin 0.4 mg 02/20/22 08:35 02/20/22 09:55 Nitroglycerin 0.4 Mg Tab.Subl SUBLINGUAL 02/20/23 08:34 0.4 mg Q5M PRN Administration Chest Pain Nitroglycerin 0.4 mg 02/20/22 13:49 Nitroglycerin 0.4 Mg Tab.Subl SUBLINGUAL 02/20/23 13:48 Q5MIN.X3 PRN Chest Pain Ondansetron HCl 4 mg 02/20/22 13:39 Ondansetron 4 Mg/2 Ml Vial IV-PUSH 02/20/23 13:38 Q8H PRN Nausea And Vomiting Potassium Chloride 40 meq 02/20/22 13:39 Potassium Chloride Er 20 Meq Tab.Er.Prt PO 02/20/23 13:38 DAILY PRN Hypokalemia Sodium Chloride 0 ml 02/20/22 08:24 Sodium Chloride 0.9 % 10 Ml Syringe IV-PUSH 02/20/23 08:23 PRN PRN Flush Sodium Chloride 0 ml 02/20/22 15:40 Sodium Chloride 0.9 % 10 Ml Syringe IV-PUSH 02/20/23 15:39 PRN PRN Flush A&P - Hospitalist Assessment/Plan (1) Chest pain: (2) Dizziness: Plan 51-year-old female with a reported history of prediabetes, hyperlipidemia, tobacco use not on medications admitted for observation further evaluation of chest pain. Chest pain Dizziness -Reported similar chest pain again this morning around 6 AM, has now resolved, reports it was not as intense as the chest pain she experienced prior to admission -On telemetry, no events overnight -Troponins trended, within normal limits -Echo with LVEF 55 to 60%, normal wall motion, LV size and thickness and function, some impaired relaxation associated with mild diastolic dysfunction -Patient with reports of dizziness on and off over the last few months, carotid duplex ultrasound with no hemodynamically significant stenosis of either extracranial internal carotid artery. Both vertebral arteries are patent with antegrade flow -LDL 148, triglycerides 162, HDL 43, continue Lipitor -Hemoglobin A1c remains in prediabetic range at 5.7% -Nitro as needed for chest pain -Chronic right upper extremity pain, Tylenol prn -Cardiology following, plan for stress test today DVT prophylaxis: Lovenox subcu I personally saw this patient on the day of the encounter, reviewed the history,performed the lopez elements of the exam and formulated the plan of care and confirmed the nurse practitioners/residents/general internal medicine physician written note. Patient seen and examined. She just came back from stress test. She denies anychest pain. States that she feels like she has air in her head and does not feel right. Specifically asked if she has any dizziness/lightheadedness but shedenies it. She denies any neck pain, blurring of vision. CT head showed no acute pathology. Carotid ultrasound showed no acute pathology. Cardiology cleared the patient for discharge. Educated patient to follow-up with her PCP as an outpatient in 3 days. Educated her to strictly follow low-carb diet as she is in the low range of prediabetes, she verbalized understanding. Educated her to go to ER or call her physician if symptoms recur or worsen, she verbalized understanding. Documented By: Yael Hanley DO, RES 02/21/22 0917 Signed By: <Electronically signed by DO MEME Hanley> 02/21/22 1052 <Electronically signed by Rob Pryor MD> 02/21/22 4560 [facility] Work Phone: 1(642) 782-917204-13-2022 Consult note Author Domingo Cordova [facility] February 20, 2022 3:40pm Note Date/Time February 20, 2022 3:4 0pm [facility] [address] [place] [address] Cardiology Consult Note Signed Patient: Emily Beatty MR#: [id number] : 1970 Acct:[id number] Age/Sex: 51 / F Adm Date: 2 Loc: Room: [address] [place] [address] Type : ADM INOo Attending Dr: Rob Pryor MD Copies to: Rob Pryor MD [facility] Domingo Cordova MD, FACC~ Cardiology HPI History of Present Illness Consult Date: 02/20/22 Reason for Consult: Chest pain HPI: Ms. Beatty is a 51 year old female who is being seen at request of the hospitalist for evaluation of chest pain. Patient has no cardiac history. She has no medical problems and on no prescription medications. She works full-timeand lives with her and is active smoker most of her adult life. She reported family history of CAD in her father requiring bypass surgery in his 60swith no other family members having cardiac disease. Nearly 4 years the patienthas been experiencing unexpected symptoms of dizziness and chest pain with and without exertion associated with diaphoresis without palpitations syncope or near syncope. She had no GI symptoms but last week underwent colonoscopy and was found to have normal study. The patient has no symptoms of weight loss or weight gain denies any orthopnea PND or lower extremity edema and no claudications. No constitutional symptoms. In the ER she was found to have normal sinus rhythm with nonspecific ST segment abnormalities. Troponin was normal and other labs were unremarkable. Her symptoms resolved spontaneously. Currently she is resting comfortably. Review of Systems Review of Systems Review of systems: 11 point review of system essentially unremarkable [facility] Vaccinated for COVID-19?: No Medical History (Updated 02/20/22 @ 15:39 by Domingo Cordova MD) Colon polyp No pertinent past medical history Renal mass, left Surgical History H/O foot surgery H/O neck surgery Hx of hysterectomy Family History Sister Breast cancer Family/Other No problems noted. Father Cancer Social History Smoking Status: Current every day smoker Tobacco Type: cigarettes Substance Use Type: Marijuana Substance Abuse Comment: occasional Meds Medications and Allergies Allergies cefazolin [From Anc] Allergy (Verified 02/20/22 13:25) Hives Home Medications cholecalciferol (vitamin D3) 125 mcg (5,000 unit) tablet (Vitamin D3) 5,000 unitPO DAILY 02/20/22 [History Confirmed 02/20/22] Exam Physical Exam Vital Signs: Temp Pulse Resp BP Pulse Ox 97.6 F 56 L 14 139/77 100 02/20/22 14:55 02/20/22 14:55 02/20/22 14:55 02/20/22 14:55 02/20/22 14:55 Const General: cooperative, healthy appearing, comfortable, no acute distress and welldeveloped Nutritional Appearance: average body habitus Orientation: alert, awake and oriented x3 HEENT Head: normal to inspection, normocephalic and atraumatic Ears: hearing grossly normal bilaterally Nose: external nose normal Face and sinus: normal facial exam Eyes General: appearance normal, both eyes and all related structures Conjunctivae: conjunctivae normal Pupils: PERRL Neck Neck: normal visual inspection, full ROM, no lymphadenopathy, trachea midline and supple Neck mass: No Thyroid: thyroid normal Carotids: normal carotid upstroke Resp Effort & Inspection: normal respiratory effort Auscultation: clear to auscultation bilaterally Cardio Jugular venous pressure: no JVD Palpation: normal PMI Rate: bradycardic Rhythm: regular rhythm and abnormal rhythm Heart Sounds: S1 normal and S2 normal GI Inspection: normal to inspection Palpation: soft and no hepatosplenomegaly Extrem General: no clubbing, cyanosis or edema Results Labs CBC & CMP: 02/20/22 08:46 02/20/22 08:46 Lab results: Cardiac Enzymes 02/20/22 02/20/22 Range/Units 08:46 08:46 AST 19 (10-42) U/L B-Natriuretic Peptide 12.0 (5-100) pg/mL CBC 02/20/22 Range/Units 08:46 RBC 4.65 (3.60-5.00) x10E6/uL Hgb 14.5 (11.8-15.4) g/dL Hct 42.9 (34.0-46.4) % Plt Count 302 (150-450) x10E3/uL Neut # (Auto) 3.6 (1.8-7.7) x10E3/uL Lymph # (Auto) 2.0 (1.00-4.8) x10E3/uL [place] # (Auto) 0.5 (0.0-0.8) x10E3/uL Eos # (Auto) 0.1 (0.0-0.45) x10E3/uL Baso # (Auto) 0.1 (0.0-0.2) x10E3/uL Comprehensive Metabolic Panel 02/20/22 Range/Units 08:46 Sodium 138 (136-146) mmol/L Potassium 3.6 (3.5-5.1) mmol/L Chloride 101 (95-114) mmol/L Carbon Dioxide 26.9 (22.0-30.0) mmol/L BUN 6 L (9-23) mg/dL Creatinine 0.91 (0.44-1.03) mg/dL Glucose 96 (70-100) mg/dL Calcium 9.4 (8.2-10.2) mg/dL Direct Bilirubin < 0.1 (0.0-0.4) mg/dL Indirect Bilirubin TNP AST 19 (10-42) U/L ALT 15 (10-60) U/L Alkaline Phosphatase 74 (32-92) U/L Total Protein 6.6 (6.1-7.9) gm/dL Albumin 4.0 (3.2-5.5) gm/dL Intake and Output 02/19/22 02/20/22 02/20/22 23:59 07:59 15:59 Intake Total 1000 / 1000 Balance 1000 / 1000 Intake: IV 1000 / 1000 Sodium Chloride 0.9% 1,000 ml 1 1000 / 1000 ,000 ml @ 999 mls/hr IV .Q1H1M ONE Rx#:[id number] Other: # Unmeasured Voids 1 Weight 72.7 kg Date of Last Bowel Movement 02/20/22 Patient Weight 02/20/22 23:59 Weight 72.7 kg Lab 02/20/22 08:46 PT 12.1 INR 1.1 APTT 36.1 A&P - Cardiology (1) Chest pain: Assessment/Problem Details: Atypical in nature with minimal ST segment abnormalities and normal troponin. Plan: Proceed with noninvasive testing with Lexiscan Cardiolite stress test as an inpatient and an echocardiogram Code(s): R07.9 - Chest pain, unspecified (2) Dizziness: Assessment/Problem Details: No indication of significant cardiac arrhythmias she has only mild sinus bradycardia which I do not believe it is contributing Plan: Observe Code(s): R42 - Dizziness and giddiness (3) Tobacco abuse: Plan: Counseled for tobacco cessation Code(s): Z72.0 - Tobacco use (4) Family history of premature CAD: Plan: Aggressive management of risk factor for CAD specifically tobacco cessation Code(s): Z82.49 - Family history of ischemic heart disease and other diseases of the circulatory system Documented By: Domingo Cordova MD, [facility] 2 1536 Signed By: <Electronically signed by [facility] Domingo Cordova> 02/20/22 5950 [facility] Work Phone: 1(434) 630-120704-13-2022 History and physical note Author Rob Pryor [facility] February 20, 2022 1:59pm Note Date/Time February 20, 2022 1:5 9pm [facility] [address] [place] [address] Hospitalist H&P Signed Patient: Emily Beatty MR#: [id number] : 1970 Acct:[id number] Age/Sex: 51 / F Adm Date: 2 Loc: Room: [address] [place] [address] Type : ADM INOo Attending Dr: Rob Pryor MD Copies to: Rob Pryor MD [facility]~ HPI DATE OF EXAMINATION: 02/20/22 CHIEF COMPLAINT: chest pain HISTORY OF PRESENT ILLNESS: Patient is a 51-year-old lady past medical history of prediabetes not on any medications, smoker presented to the ED complaining of chest pain. States that she was at her workplace lifting some boxes and suddenly started having substernal chest discomfort which is 8/10 intensity radiating to the right neck and right shoulder. She never had any symptoms like this before. She rested for a while but the pain did not subside, she called her who subsequently brought her to the hospital. Patient was given aspirin and nitroglycerin in the ED which gave her some relief. She denies any associated shortness of breath, cough. She notes that she has been having intermittent dizziness for the past few months and has been happening more frequently lately. She could not exactly define dizziness but states that it could happen anytime without any triggering event. Notes that she passed out once and regained consciousness in less than 2 minutes sometime in the past and her workplace but did not seek medical attention. Of note, patient had blood work done couple months ago when she was told to have increased cholesterol and prediabetes. Sheis currently comfortable at rest. Denies any shortness of breath, cough, palpitations, nausea, vomiting, abdominal pain, urinary complaints, fever and chills. She smokes 1 pack a day and drinks alcohol twice a month. Does not useany other drugs. Her father has history of CABG and mother has history of heartfailure Review of Systems Review of Systems All other systems reviewed & are negative unless noted below or in HPI PMFSH Vaccinated for COVID-19?: No Medical History (Updated 02/20/22 @ 13:56 by Rob Pryor MD) Colon polyp No pertinent past medical history Renal mass, left Surgical History H/O foot surgery H/O neck surgery Hx of hysterectomy Family History Sister Breast cancer Family/Other No problems noted. Father Cancer Social History Smoking Status: Current every day smoker Tobacco Type: cigarettes Substance Use Type: Marijuana Substance Abuse Comment: occasional Meds Medications and Allergies Allergies cefazolin [From Anc] Allergy (Verified 02/20/22 13:25) Hives Home Medications cholecalciferol (vitamin D3) 125 mcg (5,000 unit) tablet (Vitamin D3) 5,000 unitPO DAILY 02/20/22 [History Confirmed 02/20/22] Exam Physical Exam Vital Signs: Temp Pulse Resp BP Pulse Ox 98.1 F 74 18 140/84 97 02/20/22 12:30 02/20/22 13:18 02/20/22 13:18 02/20/22 13:18 02/20/22 13:18 Narrative: General: Awake, alert, oriented x3 not in acute distress HEENT: Normocephalic, atraumatic, PERRLA, normal mucosa Cardiovascular: Regular rate and rhythm , S1-S2 heard, no murmurs or gallops Lungs: No wheezing or rhonchi heard Gastrointestinal: Soft, nontender, bowel sounds heard Extremities: No edema Neurological: no sensory or motor deficit Skin: Dry and warm, no rashes or lesions Psych: Normal mood and affect PANFILO Risk Score PANFILO Risk Score Predictor Historical: 3 or more Risk Factors: FHx,HTN,elevated cholesterol,DM,active smoker Score Risk Score (0-7): 1 Results Lab Results Labs: Laboratory Last Values Corrected WBC 6.3 X10E3/uL (3.8-11.6) 02/20/22 08:46 Uncorrected WBC Count 6.3 x10E3/uL (4.5-11.0) 02/20/22 08:46 RBC 4.65 x10E6/uL (3.60-5.00) 02/20/22 08:46 Hgb 14.5 g/dL (11.8-15.4) 02/20/22 08:46 Hct 42.9 % (34.0-46.4) 02/20/22 08:46 MCV 92.2 fl (80-100) 02/20/22 08:46 MCH 31.2 pg (24.7-34.3) 02/20/22 08:46 MCHC 33.8 g/dL (32.0-35.0) 02/20/22 08:46 RDW 12.9 % (11.9-15.3) 02/20/22 08:46 Plt Count 302 x10E3/uL (150-450) 02/20/22 08:46 MPV 7.3 fl (6.3-10.7) 02/20/22 08:46 Neut % (Auto) 57.2 % (.) 02/20/22 08:46 Lymph % (Auto) 32.1 % (.) 02/20/22 08:46 [place] % (Auto) 7.4 % (.) 02/20/22 08:46 Eos % (Auto) 1.8 % (.) 02/20/22 08:46 Baso % (Auto) 1.5 % (.) 02/20/22 08:46 Neut # (Auto) 3.6 x10E3/uL (1.8-7.7) 02/20/22 08:46 Lymph # (Auto) 2.0 x10E3/uL (1.00-4.8) 02/20/22 08:46 [place] # (Auto) 0.5 x10E3/uL (0.0-0.8) 02/20/22 08:46 Eos # (Auto) 0.1 x10E3/uL (0.0-0.45) 02/20/22 08:46 Baso # (Auto) 0.1 x10E3/uL (0.0-0.2) 02/20/22 08:46 Nucleated RBC % (auto) 0.0 % (0-0.5) 02/20/22 08:46 PT 12.1 Seconds (9.0-12.9) 02/20/22 08:46 INR 1.1 02/20/22 08:46 APTT 36.1 Seconds (25.1-36.5) 02/20/22 08:46 PHA Creatinine Clear N/A 02/20/22 08:46 Sodium 138 mmol/L (136-146) 02/20/22 08:46 Potassium 3.6 mmol/L (3.5-5.1) 02/20/22 08:46 Chloride 101 mmol/L (95-114) 02/20/22 08:46 Carbon Dioxide 26.9 mmol/L (22.0-30.0) 02/20/22 08:46 BUN 6 mg/dL (9-23) L 02/20/22 08:46 Creatinine 0.91 mg/dL (0.44-1.03) 02/20/22 08:46 Est GFR ( Amer) > 60 mL/Min 02/20/22 08:46 Est GFR (Non-Af Amer) > 60 mL/Min 02/20/22 08:46 Glucose 96 mg/dL (70-100) 02/20/22 08:46 Calcium 9.4 mg/dL (8.2-10.2) 02/20/22 08:46 Total Bilirubin 0.4 mg/dL (0.3-1.2) 02/20/22 08:46 Direct Bilirubin < 0.1 mg/dL (0.0-0.4) 02/20/22 08:46 Indirect Bilirubin TNP 02/20/22 08:46 AST 19 U/L (10-42) 02/20/22 08:46 ALT 15 U/L (10-60) 02/20/22 08:46 Alkaline Phosphatase 74 U/L (32-92) 02/20/22 08:46 Troponin I High Sens < 3 pg/mL (0-15) 02/20/22 08:46 B-Natriuretic Peptide 12.0 pg/mL (5-100) 02/20/22 08:46 Total Protein 6.6 gm/dL (6.1-7.9) 02/20/22 08:46 Albumin 4.0 gm/dL (3.2-5.5) 02/20/22 08:46 Globulin 2.6 gm/dL 02/20/22 08:46 Albumin/Globulin Ratio 1.5 02/20/22 08:46 Lipase 30.0 U/L (22-51) 02/20/22 08:46 Urine Color Yellow (Yellow) 02/20/22 08:46 Urine Appearance Clear (Clear) 02/20/22 08:46 Urine pH 6.5 (5.0-9.0) 02/20/22 08:46 Ur Specific [place] 1.009 (1.001-1.030) 02/20/22 08:46 Urine Protein Negative mg/dL (Negative) 02/20/22 08:46 Urine Glucose (UA) Normal mg/dL (Normal) 02/20/22 08:46 Urine Ketones Negative (Negative) 02/20/22 08:46 Urine Occult Blood Negative (Negative) 02/20/22 08:46 Urine Nitrite Negative (Negative) 02/20/22 08:46 Urine Bilirubin Negative (Negative) 02/20/22 08:46 Urine Urobilinogen Normal mg/dL (Normal) 02/20/22 08:46 Ur Leukocyte Esterase 1+ (Negative) H 02/20/22 08:46 Urine RBC 0-1 /HPF (0-4) 02/20/22 08:46 Urine WBC 1-2 /HPF (0-4) 02/20/22 08:46 Ur Squamous Epith Cells 1-2 /HPF (0-2) 02/20/22 08:46 Urine Bacteria None seen (None Seen) 02/20/22 08:46 Hyaline Casts 0-8 /LPF (0-8) 02/20/22 08:46 COVID-19 PCR Interp N/A 02/20/22 13:15 SARS Antigen (LFIA) Negative (Negative) 02/20/22 13:15 Microbiology Results Micro: Microbiology - Results from entire visit 02/20/22 13:15 Nasal SARS Antigen (LFIA) - Final A&P - Hospitalist Assessment/Plan (1) Chest pain: (2) Dizziness: Plan Patient will be admitted for observation She is currently saturating well on room air and is hemodynamically stable Labs essentially normal EKG showed no acute ischemic changes. Troponin within normal limits, trend troponin Chest x-ray showed no acute pathology Consult cardiology Obtain A1c, lipid panel Patient received aspirin in the ED, will continue Start atorvastatin 40 mg p.o. nightly Telemetry Nitroglycerin as needed for chest pain DVT prophylaxis Documented By: Rob Pryor MD 02/20/22 1350 Signed By: <Electronically signed by Rob Pryor MD> 02/20/22 1355 [facility] Work Phone: 1([phone]) 240-531804-08-2022 [facility] CenterEvaluation noteNo assessment information availableTrihealth [facility]hes[facility] Work Phone: Evaluation note* Diagnosis Onset Date Resolution Status Colon polyp acute [facility] Work Phone: Evaluation note* Diagnosis Onset Date Resolution Status Colon polyp acute Chest pain acute [facility] Work Phone: Evaluation note* Diagnosis Onset Date Resolution Status Colon polyp acute Chest pain acute Dizziness acute Family history of premature CAD acute Tobacco abuse acute [facility] Work Phone: History and physical note Author Soto Guerrero [facility] February 15, 2022 8:56am Note Date/Time February 15, 2022 8:43 am [facility] [address] [place] [address] Gastroenterology H&P Signed Patient: Emily Beatty MR#: [id number] : 1970 Acct:[id number] Age/Sex: 51 / F Adm Date: 2 Loc: Room: Type: [facility] Attending Dr: Soto Guerrero DO Copies to: Soto Guerrero Jr, DO [facility]~ Date of Service: 02/15/2022 Gastroenterology HPI History of Present Illness HPI: Ms. Beatty is a 51 year old female with personal history of colon polyps, negative symptoms, negative family history, last colonoscopy was 3 yrs ago in [place], [place]. Review of Systems Review of Systems All other systems reviewed & are negative unless noted below or in HPI PMFSH Vaccinated for COVID-19?: No Medical History (Updated 02/15/22 @ 08:41 by Soto Guerrero DO) Colon polyp No pertinent past medical history Renal mass, left Surgical History H/O foot surgery H/O neck surgery Hx of hysterectomy Family History Sister Breast cancer Family/Other No problems noted. Father Cancer Social History Smoking Status: Current every day smoker Tobacco Type: cigarettes Substance Use Type: Marijuana Substance Abuse Comment: from a dispensary Meds Home and Active Medications Home and Active Medications: Home Medications No known home meds 04/28/20 [History Confirmed 02/15/22] Active Medications Sodium Chloride (0.9% Sodium Chloride 1,000 Ml) 1,000 mls @ 20 mls/hr IV .Q24H YENNY Stop: 02/15/23 07:44 Last Admin: 02/15/22 08:00 Dose: 20 mls/hr Documented by: Sodium Chloride (Sodium Chloride 0.9 % 10 Ml Syringe) 0 ml IV-PUSH PRN PRN PRN Reason: Flush Stop: 02/15/23 07:43 Exam Physical Exam Vital Signs: Temp Pulse Resp BP Pulse Ox 98.1 F 70 18 121/79 98 02/15/22 07:54 02/15/22 07:54 02/15/22 07:54 02/15/22 07:54 02/15/22 07:54 Const General: no acute distress Orientation: alert and oriented x3 Resp Effort & Inspection: normal respiratory effort Auscultation: clear to auscultation bilaterally Cardio Rate: regular rate Rhythm: regular rhythm GI Palpation: soft and nontender Auscultation: normal bowel sounds Extrem General: no edema A&P - Gastroenterology Assessment/Plan (1) Colon polyp: Code(s): K63.5 - Polyp of colon Status: Acute Plan colonoscopy for evaluation Documented By: Soto Guerrero Jr, 02/15/22 084 0 Signed By: <Electronically signed by Soto Guerrero Jr, DO> 02/15/22 0856 [facility] Work Phone: Hospital Discharge instructions Additional Instructions Take the antibiotic amoxicillin twice a day for 10 days take with food 1 hydrocodone every 6 hours for severe pain May take the Zofran every 8 hours for nausea vomiting [place] soft diet as tolerated Increase oral fluids Follow-up with your family doctor for recheck Return to the ER for worsening pain high fever vomiting or any other concerns [facility] Work Phone: Summary Purpose Family History Relationship Condition Age at Onset Recorded Date/T kavon sister Malignant neoplasm of breast Unknown father Malignant neoplasm Unknown Advance Directives Advance Directive Response Recorded Date/ Time Advance Directives No April 25 7:31pm Advance Directive Response Recorded Date/ Time Advance Directives No April 25 6:31pm Chief Complaint and Reason for Visit Chief Complaint Screening Chief Complaint Screening Colon Polyps Chief Complaint Screening Colon Polyps Colon Polyps Reason for Visit Colon polyp Chief Complaint Screening Colon Polyps Colon Polyps chest pain, rt arm pain, dizzy Reason for Visit Colon polyp Chest pain Chief Complaint Screening Colon Polyps Colon Polyps chest pain, rt arm pain, dizzy Reason for Visit Colon polyp Chest pain Dizziness Family history of premature CAD Tobacco abuse Chief Complaint lt abdominal pain Chief Complaint Sore throat Additional Source Comments INFORMATION SOURCE (unrecogn ized section and content) DATE CREATED AUTHOR 03/03/2019 [facility] DATE CREATED AUTHOR AUTHOR'S ORGANIZ ATION 03/16/2021 [facility] DATE CREATED AUTHOR AUTHOR'S ORGANIZ ATION 02/24/2023 [facility] DATE CREATED AUTHOR AUTHOR'S ORGANIZ ATION 02/25/2023 [facility] DATE CREATED AUTHOR AUTHOR'S ORGANIZ ATION 07/06/2023 [facility] Care Teams (unrecognized sec tion and content) Team Status: Inactive Member Role Status D[employer] Services [facility] Primary Care Provider Active Brie S West , PI[employer]URE [employer] INSPECTOR-C Attending Provider Active Team Status: Active Member Role Status [facility] Primary Care Provider Active Team Status: Inactive Member Role Status [facility] Primary Care Provider Active Soto Guerrero , DO Attending Provider Active Team Status: Active Member Role Status [facility] Primary Care Provider Active Janes Vazquez , DO Emergency Provider Active Rbo Pryor MD Admit Provider, Attending Provider A ctive Team Status: Inactive Member Role Status [facility] Provider Active Janes Vazquez , DO Emergency Provider Active Rob Pryor MD Admit Provider, Attending Provider A ctive Alisa Gonzales RN Other Provider Active Carli Oneill , Other Provider Active Domingo Cordova MD Other Provider Active William Figueroa MD Other Provider Active Cheli Sanchez MD Other Provider Active Marcus Faustin MD Other Provider Active Monika Rosas APRN Other Provider Active Stephanie Linn MD Other Provider Active Cipriano Werner MD Other Provider Active Flaco Ya MD Other Provider Active Team Status: Inactive Member Role Status [facility] Primary Care Provider Active Isi Xiao , [facility] Emergency Provider Active Team Status: Inactive Member Role Status [facility] Care Care Provider Active Start: December 31, 2023 End: December 31, 2023 Marci Chairez APRN Attending Provider Active Sta rt: December 31, 2023 End: December 31, 2023 Goals (unrecognized section and content) Goals may be documented in a n alternate sectionGoals may be documented in an alternate sectionNo InformationGoals may be documented in an alternate sectionNo InformationGoals may be documented in an alternate section REASON FOR VISIT (unrecogniz ed section and content) HEADACHE, SINUS SX, EXPOSURE TO STREPSTAPLES REMOVAL FOR RECORDS PERTAINING TO PATIENTS WHO ARE OR HAVE BEEN ENROLLED IN A CHEMICAL DEPENDENCY/SUBSTANCEABUSE PROGRAM, SOME INFORMATION MAY BE OMITTED. This clinical summary was aggregated from multiple sources. Caution should be exercised in using it in the provision of clinical care. This summary normalizes information from multiple sources, and as a consequence, information in this document may materially change the coding, format and clinical context of patient data. In addition, data may be omitted in some cases. CLINICAL DECISIONS SHOULD BE BASED ON THE PRIMARY CLINICAL RECORDS. [facility] provides no warranty or guarantee of the accuracy or completeness of information in this document.
[2024-12-09 12:58] LABS: Prothrombin Time 10.6 sec (9.0-11.6)
[2024-12-09] MEDS: MORPHINE SULFATE 4 MG/ML VIAL 3 MG IV (13:22)
--- NOTE | 2024-12-09 13:51 | ED.GENADUL1 ---
HPI HPI - General Adult General Chief complaint: Abdominal Pain Stated complaint: ABDOMINAL PAIN Time Seen by Provider: 12/09/24 12:08 Source: patient Mode of arrival: Wheelchair History of Present Illness HPI narrative: The patient is a 54-year-old female is coming to the ER with a right lower abdominal pain, the patient mentioned that the pain is mostly in the right lower and middle area and sometimes it is related to movement of the right hip, the patient denies any nausea vomiting or any fever or chills The patient also denies any use of any [id number] medication before arrival, she mentioned that she was awake today morning when the pain started, the patient denies any change in bowel movements well and she mentioned that she have a history of hysterectomy Related Data Previous Rx's ?Medication ?Instructions ?Recorded ciprofloxacin HCl 500 mg tablet 500 mg PO BID #14 tabs 12/09/24 dicyclomine 20 mg tablet 20 mg PO QID PRN abdominal pain 12/09/24 #14 tabs Allergies Allergy/AdvReac Type Severity Reaction Status Date / Time cefazolin (From [facility]) Allergy Mild Verified 10/16/23 22:58 Opioid HPI Opioid Management Most Recent Opioid Data: Last Pain Scale 10 12/09/24 13:22 12/09/24 Last MAR Pain Assessment 12/09/24 13:22 Review of Systems ROS Narrative Nurses notes and vital signs reviewed and patient is not hypoxic. General: Well-appearing and in no apparent distress. Skin: Warm, dry, no pallor noted. No rash. Head: Normocephalic, atraumatic. Neck: Supple, non-tender. Eye: Pupils are equal, round and EOMI. No scleral icterus. Ears, Nose, Mouth, and Throat: TM are clear, no nasal mucosal hypertrophy. Oral mucosa is moist, no posterior oropharynx erythema, uvula is mid-line Cardiovascular: Regular Rate and Rhythm without murmur, gallop or rub. Respiratory: No accessory muscle use or respiratory distress. Lungs are clear to auscultation, no wheezing, rales or rhonchi Chest Wall: no tenderness Back: No midline thoracic or lumbar vertebral tenderness. No CVA tenderness Musculoskeletal: normal ROM, no calf or popliteal tenderness, no lower extremity edema/swelling GI: Abdomen is soft, non-distended. Normal bowel sounds. No masses appreciated. No tenderness to palpation. No rebound, guarding, or rigidity noted. Neurological: A&O x4. No cranial nerve dysfunction observed. No truncal ataxia. Moves all extremities. Sensation intact. Psychiatric: Cooperative and interactive. Normal mood and affect. PFSH PFS Social History Smoking status: Current every day smoker Little interest or pleasure in doing things: not at all Feeling down, depressed, or hopeless: not at all Exam Narrative Exam Narrative: Nurses notes and vital signs reviewed and patient is not hypoxic. General: Well-appearing and in no apparent distress. Skin: Warm, dry, no pallor noted. No rash. Head: Normocephalic, atraumatic. Neck: Supple, non-tender. Eye: Pupils are equal, round and EOMI. No scleral icterus. Ears, Nose, Mouth, and Throat: TM are clear, no nasal mucosal hypertrophy. Oral mucosa is moist, no posterior oropharynx erythema, uvula is mid-line Cardiovascular: Regular Rate and Rhythm without murmur, gallop or rub. Respiratory: No accessory muscle use or respiratory distress. Lungs are clear to auscultation, no wheezing, rales or rhonchi Chest Wall: no tenderness Back: No midline thoracic or lumbar vertebral tenderness. No CVA tenderness Musculoskeletal: normal ROM, no calf or popliteal tenderness, no lower extremity edema/swelling GI: Abdomen is soft, non-distended. Normal bowel sounds. No masses appreciated. The patient tenderness was mostly toward the right hip more than the right lower quadrant, and the pain can be induced with flexion of the right hip Neurological: A&O x4. No cranial nerve dysfunction observed. No truncal ataxia. Moves all extremities. Sensation intact. Psychiatric: Cooperative and interactive. Normal mood and affect. Constitutional Vital Signs, click to edit/add: Last Vital Signs Temp 98.1 F 12/09/24 11:52 Pulse 91 H 12/09/24 11:52 Resp 20 12/09/24 11:52 BP 163/86 H 12/09/24 11:52 Pulse Ox 97 12/09/24 11:52 O2 Del Method Room Air 12/09/24 11:52 Course Vital Signs Vital signs: Vital Signs Temperature 98.1 F 12/09/24 11:52 Pulse Rate 91 H 12/09/24 11:52 Respiratory Rate 20 12/09/24 11:52 Blood Pressure 163/86 H 12/09/24 11:52 Pulse Oximetry 97 12/09/24 11:52 Oxygen Delivery Method Room Air 12/09/24 11:52 Temperature 98.1 F 12/09/24 11:52 Pulse Rate 91 H 12/09/24 11:52 Respiratory Rate 20 12/09/24 11:52 Blood Pressure 163/86 H 12/09/24 11:52 Pulse Oximetry 97 12/09/24 11:52 Oxygen Delivery Method Room Air 12/09/24 11:52 Medical Decision Making MDM Narrative Medical decision making narrative: The patient CBC showed no leukocytosis Chemistry shows some mild acute kidney injury with creatinine 1.21 The patient urine although not showing any UTI symptoms the CAT scan of the abdomen pelvis shows possible cystitis and the appendix was normal With the patient current presentation and the fact that the concern of UTI with the patient's symptoms the patient will be covered with ciprofloxacin Patient also was treated with Bentyl for pain at the prescription to go home The patient also instructed on hydration The patient is to follow up with primary care physician in next 2-3 days or to return to the emergency department should any of the signs or symptoms worsen or new symptoms develop. The patient agrees with the following Diagnosis and Treatment plan and the patient will be discharged home. Lab Data Labs: Lab Results 12/09/24 12/09/24 Range/Units 12:02 12:08 WBC 6.0 (4.0-11.0) 10^3/uL RBC 4.35 (4.20-5.40) 10^6/uL Hgb 14.0 (12.0-16.0) g/dL Hct 40.4 (36.0-48.0) % MCV 92.9 (81.0-99.0) fL MCH 32.2 (26.7-34.0) pg MCHC 34.7 (29.9-35.2) g/dL RDW 12.1 (11.0-15.0) % Plt Count 321 (150-450) 10^3/uL MPV 9.1 L (9.5-13.5) fL Neut % (Auto) 47.2 (43.0-75.0) % Lymph % (Auto) 41.0 (20.5-60.0) % [place] % (Auto) 5.6 (1.7-12.0) % Eos % (Auto) 2.7 (0.9-7.0) % Baso % (Auto) 1.7 (0.2-2.0) % Neut # (Auto) 2.9 (1.4-6.5) 10^3/uL Lymph # (Auto) 2.5 (1.2-3.8) 10^3/uL [place] # (Auto) 0.3 (0.3-0.8) 10^3/uL Eos # (Auto) 0.2 (0.0-0.7) 10^3/uL Baso # (Auto) 0.1 (0.0-0.1) 10^3/uL Abs Immat Gran (auto) 0.11 H (0.00-0.03) 10^3/uL Imm/Tot Granulo (auto) 1.8 H (0.0-0.5) % PT 10.6 (9.0-11.6) sec INR 1.00 Sodium 139 (136-145) mmol/L Potassium 4.0 (3.5-5.1) mmol/L Chloride 103 (98-107) mmol/L Carbon Dioxide 28.6 (21.0-32.0) mmol/L Anion Gap 11.4 BUN 10.0 (7.0-18.0) mg/dL Creatinine 1.21 H (0.55-1.02) mg/dL Est GFR ( Amer) 56 L (>=60 mL/min/1.73m^2) Est GFR (Non-Af Amer) 46 L (>=60 mL/min/1.73m^2) BUN/Creatinine Ratio 8.3 Glucose 102 (74-106) mg/dL Lactate 0.6 (0.4-2.0) mmol/L Calcium 9.2 (8.5-10.1) mg/dL Total Bilirubin 0.3 (0.2-1.0) mg/dL AST 23 (15-37) U/L ALT 30 (14-59) U/L Alkaline Phosphatase 62 (46-116) U/L Total Protein 7.2 (6.4-8.2) g/dL Albumin 4.1 (3.4-5.0) g/dL Globulin 3.1 g/dL Albumin/Globulin Ratio 1.3 Urine Color Lt. yellow (YELLOW) Urine Clarity Clear (CLEAR) Urine pH 6.0 (5.0-9.0) Ur Specific [place] <=1.005 A (1.005-1.025) Urine Protein Negative (NEG/TRACE) mg/dL Urine Glucose (UA) Negative (NEGATIVE) mg/dL Urine Ketones Negative (NEGATIVE) mg/dL Urine Occult Blood Negative (NEGATIVE) Urine Nitrite Negative (NEGATIVE) Urine Bilirubin Negative (NEGATIVE) Urine Urobilinogen 0.2 (0.2-1.0) EU/dL Ur Leukocyte Esterase Negative (NEGATIVE) Discharge Plan Discharge Chief Complaint: Abdominal Pain Clinical Impression: Cystitis Patient Disposition: Home, Self-Care Time of Disposition Decision: 13:45 Condition: Good Prescriptions / Home Meds: New dicyclomine 20 mg tablet 20 mg PO QID PRN (Reason: abdominal pain) Qty: 14 0RF ciprofloxacin HCl 500 mg tablet 500 mg PO BID Qty: 14 0RF Print Language: [place] Instructions: Urinary Tract Infection in Women (DC), Pelvic Pain in Women (ED) Referrals: Physician,Non-Staff, MD [Primary Care Provider] - 1 week
== END 2024-12-09 14:07 | disposition home or self-care (01) ==
PROVIDERS: Emergency Provider Emergency Medicine
DX: N30.90 Cystitis, unspecified without hematuria (principal); Z90.710 Acquired absence of both cervix and uterus; F17.200 Nicotine dependence, unspecified, uncomplicated
CPT/HCPCS: 36415; 74176; 80053; 81003; 83605; 85025; 85610; 96374; 96375; 99284; J1885; J2270